=== PATIENT | female | born 1985 | race Caucasian/White ===

== ENCOUNTER → 2016-07-10 | Outpatient (CLI) | payer OTHER ==
[~2016-07-10] MED LIST: ESCI10TA17 PO; IBUP600T44 PO; LEVOIUD PV; LXP/10 PO; NORG0.253 PO; NORGTAB36 PO; NORGTAB39 PO; OXYC-57 PO; TOPI100T20 PO; TOPI50TA16 PO; TOPI50TA24 PO; VENL150C56 PO
== END | disposition home or self-care (01) ==
LOC: C.PAPS 09:48
PROVIDERS: ATTEND Obstetrics & Gynecology
DX: Z01.419 Encounter for gynecological examination (general) (routine) without abnormal findings (principal)

== ENCOUNTER → 2016-08-06 | Outpatient (CLI) | payer OTHER ==
[2016-08-09 00:50] LABS: CHLAMYDIA TRACH RNA*** NOT DETECTED (NOT DETECTED); GC (NEIS GONORRHOEAE)RNA** NOT DETECTED (NOT DETECTED)
== END | disposition home or self-care (01) ==
LOC: C.LABSPEC 16:24
PROVIDERS: ATTEND Obstetrics & Gynecology
DX: Z30.430 Encounter for insertion of intrauterine contraceptive device (principal)

== ENCOUNTER 2016-08-28 08:48 | Emergency (ER) | payer OTHER ==
[~2016-08-28] VITALS: Ht 165.1 cm; Wt 97.8 kg
[~2016-08-28 08:48] MED LIST changes: -ESCI10TA17 PO; -IBUP600T44 PO; -LEVOIUD PV; -LXP/10 PO; -NORG0.253 PO; -NORGTAB36 PO; -OXYC-57 PO; -TOPI100T20 PO; -TOPI50TA16 PO; -TOPI50TA24 PO
[2016-08-28 08:50] VITALS: TEMP 36.5; Ht 165.1 cm; Wt 97.8 kg
[2016-08-28] MEDS ORDERED: SODIUM CHLORIDE 0.9% 1000ML 1,000 ML IV STA (09:33)
--- NOTE | 2016-08-28 09:42 | EMERGENCY ROOM VISIT NOTE ---
History First contact with patient: :02 Chief Complaint: PELVIC PAIN Stated Complaint: RIGHT PELVIC PAIN-RADIATES UP TO ABD. AND BACK History of Present Illness The patient is a 30 year old female who presents to the Emergency Room with complaints of abdominal pain increasing. The patient had an IUD placed approximately 2 weeks ago. She developed cramping afterwards and when the position was checked and its position was incorrect. That IUD was removed and another was placed 2 days ago. The patient has had pain and cramping. She reports constant cramping pain and occasional sharp pain in the right lower abdomen that radiates to the back. The patient states that she works at the [employer]. She had an ultrasound done yesterday was found to have approximately 12 mL of free fluid around the left ovary. She was also found to have a cyst on the left ovary that has been stable. The pain she is experiencing is all on the right side. She has had an appendectomy in the past. The patient rates her discomfort a 3.5/10. She reports nausea. She has been taking ibuprofen without significant improvement. She denies any fevers or chills. She denies any pain in her chest or trouble breathing. She denies any urinary symptoms. She denies any vaginal discharge. Review of Systems A 10 system review of systems was completed with positives and pertinent negatives listed in the HPI. Past Medical/Surgical History Medical Problems: (1) Anxiety (2) Bipolar disorder Social History Smoking Status: Former Smoker Alcohol Use: none Drug Use: none Housing Status: lives alone, lives with family Occupation Status: employed Current/Historical Medications Scheduled Escitalopram (Lexapro), 10 MG PO HS Levonorgestrel (Iud) (Mirena), 1 EA PV UD Topiramate (Topamax), 100 MG PO HS Topiramate (Topamax), 50 MG PO QAM Scheduled PRN Ibuprofen (Motrin), 600 MG PO Q6H PRN for Pain Oxycodone/Acetaminophen 5MG/325MG (Percocet 5MG/325MG), 1-2 TABS PO Q4 PRN for Pain Allergies Uncoded Allergies: DIAMATAP (Allergy, Unknown, UNKNOWN, 07/06/14) Physical Exam Vital Signs Date Time Temp Pulse Resp B/P Pulse Ox O2 Delivery O2 Flow Rate FiO2 08/28/16 12:09 68 16 117/79 97 Room Air 08/28/16 11:06 73 16 147/95 100 Room Air 08/28/16 08:50 36.5 75 17 136/80 99 Room Air Physical Exam VITALS: Vitals are noted on the nurse's note and reviewed by myself. Vital signs stable. The patient is afebrile. GENERAL: This is a 30-year-old female, in no acute distress, nondiaphoretic, well-developed well-nourished. SKIN: The skin was without rashes, erythema, edema, or bruising. There is no tenting of the skin. Capillary reflex less than 2 seconds. HEAD: Normocephalic atraumatic. EARS: The external ears are normal in appearance. EYES: Pupils equal round and reactive to light and accommodation. Conjunctivae without injection, sclerae without icterus. Extraocular movements intact. NOSE: Patent, turbinates without inflammation or discharge. No sinus tenderness. MOUTH: Mucous membranes moist. Tonsils are not enlarged. Pharynx without erythema or exudate. Uvula midline. Airway patent. Tongue does not deviate. NECK: Supple without nuchal rigidity. No JVD. HEART: Regular rate and rhythm without murmurs gallops or rubs. LUNGS: Clear to auscultation bilaterally without wheezes, rales or rhonchi. No retractions or accessory muscle use. ABDOMEN: Positive bowel sounds x 4. Soft, marked right lower quadrant tenderness. Positive rebound, rosving's, without masses or organomegaly. Miller sign negative. MUSCULOSKELETAL: No muscle atrophy, erythema, or edema noted. Full range of motion in all extremities. No tenderness to palpation. Normal gait. Strength 5/5 throughout. NEURO: Patient was alert and oriented to person place and time. No focal neurological deficits. Medical Decision & Procedures ER Provider Diagnostic Interpretation: ABDOMEN AND PELVIS CT WITH IV CONTRAST CT DOSE: 1089.73 mGycm HISTORY: Pain right abdominal pain, recent IUD placement h/o appendectomy TECHNIQUE: Multiaxial CT images of the abdomen and pelvis were performed following the use of intravenous contrast. COMPARISON STUDY: None. FINDINGS: Lung bases are clear. Liver spleen and pancreas appear unremarkable. Bowel pattern is nonobstructive. Kidneys negative for hydronephrosis. The appendix has been removed. Bowel pattern is considered nonobstructive. Intrauterine device within the central uterine canal. Moderate amount of high density fluid and/or blood within the pelvic cul-de-sac. This potentially represents a partial ovarian cyst rupture. IMPRESSION: 1. Moderate amount of blood and/or free fluid within the pelvic cul-de-sac. 2. This potentially relates to a partial cyst rupture. 3. Intrauterine device within the central uterine canal. 4. Study is otherwise negative. ULTRASOUND OF THE PELVIS CLINICAL HISTORY: Pelvic pain. COMPARISON STUDY: No priors. TECHNIQUE: Real-time, grayscale, and color flow sonography of the pelvis is performed both transabdominally and endovaginally. Images are reviewed in the transverse and longitudinal planes. FINDINGS: Uterus: The retroverted uterus is normal in size and echotexture, measuring 8.2 x 5.1 x 5.8 cm. Endometrium: An intrauterine device is in place. The endometrium is normal in appearance, and the endometrial stripe is normal in thickness measuring up to 0.5 cm. Ovaries: The ovaries are normal in size and morphology. The right ovary measures 2.2 x 0.9 x 1.8 cm and the left ovary measures 6.1 x 4.5 x 5.1 cm. There is a 5.1 cm minimally complex left ovarian cyst. Additional follicles are seen bilaterally. Normal Doppler waveforms are shown within both ovaries. Pelvis: There is a small volume of free fluid in the left adnexa. No concerning adnexal lesion is seen. IMPRESSION: 1. There is a 5.1 cm minimally complex left ovarian cyst. There is no sonographic evidence of ovarian torsion at the time of examination. 2. There is a small volume of free fluid in the left adnexa, likely related to cyst rupture. 3. The uterus and right ovary normal as imaged noting an intrauterine device in place. [~ rep ct add3]] ULTRASOUND OF THE PELVIS CLINICAL HISTORY: Pelvic pain. COMPARISON STUDY: No priors. TECHNIQUE: Real-time, grayscale, and color flow sonography of the pelvis is performed both transabdominally and endovaginally. Images are reviewed in the transverse and longitudinal planes. FINDINGS: Uterus: The retroverted uterus is normal in size and echotexture, measuring 8.2 x 5.1 x 5.8 cm. Endometrium: An intrauterine device is in place. The endometrium is normal in appearance, and the endometrial stripe is normal in thickness measuring up to 0.5 cm. Ovaries: The ovaries are normal in size and morphology. The right ovary measures 2.2 x 0.9 x 1.8 cm and the left ovary measures 6.1 x 4.5 x 5.1 cm. There is a 5.1 cm minimally complex left ovarian cyst. Additional follicles are seen bilaterally. Normal Doppler waveforms are shown within both ovaries. Pelvis: There is a small volume of free fluid in the left adnexa. No concerning adnexal lesion is seen. IMPRESSION: 1. There is a 5.1 cm minimally complex left ovarian cyst. There is no sonographic evidence of ovarian torsion at the time of examination. 2. There is a small volume of free fluid in the left adnexa, likely related to cyst rupture. 3. The uterus and right ovary normal as imaged noting an intrauterine device in place. Laboratory Results 08/28/16 09:50 Red Blood Count 4.67, Mean Corpuscular Volume 87.4, Mean Corpuscular Hemoglobin 28.7, Mean Corpuscular Hemoglobin Concent 32.8, Mean Platelet Volume 12.5, Neutrophils (%) (Auto) 62.9, Lymphocytes (%) (Auto) 30.0, Monocytes (%) (Auto) 5.6, Eosinophils (%) (Auto) 1.0, Basophils (%) (Auto) 0.3, Neutrophils # (Auto) 3.73, Lymphocytes # (Auto) 1.78, Monocytes # (Auto) 0.33, Eosinophils # (Auto) 0.06, Basophils # (Auto) 0.02 08/28/16 09:50 Test 08/28/16 00:00 08/28/16 09:50 Urine Color YELLOW Urine Appearance CLOUDY (CLEAR) Urine pH 5.0 (4.5-7.5) Urine Specific [place] 1.018 (1.000-1.030) Urine Protein NEG (NEG) Urine Glucose (UA) NEG (NEG) Urine Ketones NEG (NEG) Urine Occult Blood NEG (NEG) Urine Nitrite NEG (NEG) Urine Bilirubin NEG (NEG) Urine Urobilinogen NEG (NEG) Urine Leukocyte Esterase NEG (NEG) Urine WBC (Auto) 1-5 /hpf (0-5) Urine RBC (Auto) 5-10 /hpf (0-4) Urine Hyaline Casts (Auto) 1-5 /lpf (0-5) Urine Epithelial Cells (Auto) >30 /lpf (0-5) Urine Bacteria (Auto) NEG (NEG) White Blood Count 5.93 K/uL (4.8-10.8) Red Blood Count 4.67 M/uL (4.2-5.4) Hemoglobin 13.4 g/dL (12.0-16.0) Hematocrit 40.8 % (37-47) Mean Corpuscular Volume 87.4 fL (80-100) Mean Corpuscular Hemoglobin 28.7 pg (25-34) Mean Corpuscular Hemoglobin Concent 32.8 g/dl (32-36) Platelet Count 191 K/uL (130-400) Mean Platelet Volume 12.5 fL (7.4-10.4) Neutrophils (%) (Auto) 62.9 % Lymphocytes (%) (Auto) 30.0 % Monocytes (%) (Auto) 5.6 % Eosinophils (%) (Auto) 1.0 % Basophils (%) (Auto) 0.3 % Neutrophils # (Auto) 3.73 K/uL (1.4-6.5) Lymphocytes # (Auto) 1.78 K/uL (1.2-3.4) Monocytes # (Auto) 0.33 K/uL (0.11-0.59) Eosinophils # (Auto) 0.06 K/uL (0-0.5) Basophils # (Auto) 0.02 K/uL (0-0.2) RDW Standard Deviation 43.6 fL (36.4-46.3) RDW Coefficient of Variation 13.6 % (11.5-14.5) Immature Granulocyte % (Auto) 0.2 % Immature Granulocyte # (Auto) 0.01 K/uL (0.00-0.02) Prothrombin Time 9.5 SECONDS (9.0-12.0) Prothromb Time International Ratio 0.9 (0.9-1.1) Activated Partial Thromboplast Time 25.8 SECONDS (21.0-31.0) Partial Thromboplastin Ratio 1.0 Anion Gap 8.0 mmol/L (3-11) Est Creatinine Clear Calc Drug Dose 141.3 ml/min Estimated GFR () 137.0 Estimated GFR (Non- 118.2 BUN/Creatinine Ratio 10.5 (10-20) Calcium Level 8.7 mg/dl (8.5-10.1) Total Bilirubin 0.4 mg/dl (0.2-1) Aspartate Amino Transf (AST/SGOT) 12 U/L (15-37) Alanine Aminotransferase (ALT/SGPT) 12 U/L (12-78) Alkaline Phosphatase 67 U/L (45-117) Total Protein 7.0 gm/dl (6.4-8.2) Albumin 3.2 gm/dl (3.4-5.0) Globulin 3.8 gm/dl (2.5-4.0) Albumin/Globulin Ratio 0.8 (0.9-2) Lipase 111 U/L (73-393) Human Chorionic Gonadotropin, Qual NEG (NEG) Medications Administered Medications (Trade) Dose Ordered Sig/Gwendolyn Route Start Time Stop Time Status Last Admin Dose Admin Sodium Chloride (Nss 1000ml) 1,000 ml @ 999 mls/hr Q1H1M STAT IV 08/28/16 09:33 08/28/16 10:33 DC 08/28/16 10:01 999 MLS/HR ED Course The patient was seen and examined. Previous visits were reviewed. The patient does not have a fever or leukocytosis. She is not anemic. She does not have any significant electrolyte abnormality. Serum test was negative. Lipase was not elevated. INR was 0.9. Urinalysis reveals mild hematuria. Imaging was obtained as above. The patient appears to have a 5.1 cm complex left-sided ovarian cyst with a small amount of free fluid which suggests cyst rupture. The IUD appears to be in place. The patient presents to the emergency department with right lower abdominal discomfort. She had a recent IUD placement. The patient also is known to have a left-sided ovarian cysts with a small amount of free pelvic fluid. Imaging suggests a cyst rupture. The patient is hemodynamically stable. I discussed the case with Dr. Christiansen who evaluated the patient in the emergency department. He recommends rest, off work until Thursday and pain medication. The patient was advised of this. She should return to the ER immediately with any worsening symptoms, chest pain, trouble breathing, worsening pain. The case was discussed with Dr. Platt who agrees with the assessment and treatment plan Medical Decision DIFFERENTIAL DIAGNOSIS: Hepatitis, cholecystitis, cholangitis, biliary colic, pancreatitis, pneumonia, subdiaphragmatic abscess, appendicitis, inguinal hernia , nephrolithiasis, inflammatory bowel disease, mesenteric adenitis, peptic ulcer disease, GERD, gastritis, pancreatitis, myocardial infarction, pericarditis, ruptured aortic aneurysm, appendicitis, gastroenteritis, bowel obstruction, splenic infarct, diverticulitis, mesenteric ischemia, metabolic, peritonitis, Pelvic inflammatory disease, ovarian cyst, ovarian torsion, ovarian rupture, , ectopic , endometriosis, endometritis, urinary tract infection, ruptured ovarian cyst, tubo-ovarian abscess, among others. [place] Drug Monitoring Program Search Results: patient reviewed within database, no issues identified Impression Primary Impression: Ruptured ovarian cyst Additional Impression: Right lower quadrant abdominal pain Departure Information Dispostion Home / Self-Care Condition GOOD Prescriptions Oxycodone/Acetaminophen 5MG/325MG (PERCOCET 5MG/325MG) Tab 1-2 TABS PO Q4 Y for Pain, #36 TAB For Initial Treatment Prov: Opal Whitt PA-C 08/28/16 Referrals No Doctor, Assigned (PCP) Arsalan Christiansen M.D. Forms HOME CARE DOCUMENTATION FORM, IMPORTANT VISIT INFORMATION, WORK / SCHOOL INSTRUCTIONS Patient Instructions Cyst Ruptured Ovarian Tx, My [facility] Additional Instructions Percocet 1-2 tablet every 4-6 hours as needed for worse pain. No driving or alcohol use with Percocet and do not take with Tylenol. Return with any chest pain, trouble breathing, dizziness, lightheadedness or generalized worsening symptoms Otherwise, follow up with [facility] next week Work Instructions Additional Work Instructions: Off work until September 01 Problem Qualifiers
[2016-08-28] MEDS ORDERED: OPTIRAY 320 IV PRN (09:45)
[2016-08-28 10:07] LABS: URINE APPEARANCE CLOUDY (CLEAR); URINE BILIRUBIN NEG (NEG); URINE COLOR YELLOW; URINE EPITHELIAL CELL AUTO >30 /lpf (0-5); URINE NITRITE NEG (NEG); URINE SPECIFIC GRAVITY 1.018 (1.000-1.030); UROBILINOGEN NEG (NEG); ZZUR CULT IF INDIC CLEAN CATCH NO
[2016-08-28 10:08] LABS: BASO % 0.3 %; BASO ABS # 0.02 K/uL (0-0.2); COMPLETE YES; HEMATOCRIT 40.8 % (37-47); IG% 0.2 %; LYMPH ABS # 1.78 K/uL (1.2-3.4); MEAN CELL VOLUME 87.4 fL (80-100); MEAN CORPUSCULAR HEMOGLOBIN 28.7 pg (25-34); MEAN CORPUSCULAR HGB CONC 32.8 g/dl (32-36); MEAN PLATELET VOLUME 12.5 fL (7.4-10.4); MONO % 5.6 %; NEUT % 62.9 %; PLATELET COUNT 191 K/uL (130-400); RED BLOOD COUNT 4.67 M/uL (4.2-5.4); WHITE BLOOD COUNT 5.93 K/uL (4.8-10.8)
[2016-08-28 10:10] LABS: MANUAL MICROSCOPIC REQUIRED? NO; REVIEW REQ? NO
[2016-08-28 10:16] LABS: INR 0.9 (0.9-1.1); PROTHROMBIN TIME (PATIENT) 9.5 SECONDS (9.0-12.0)
[2016-08-28 10:29] LABS: BUN/CREATININE RATIO 10.5 (10-20); CALCIUM 8.7 mg/dl (8.5-10.1); CREATININE 0.68 mg/dl (0.60-1.20); POTASSIUM 3.9 mmol/L (3.5-5.1)
[2016-08-28 10:31] LABS: ALB/GLOB RATIO 0.8 (0.9-2)
[2016-08-28 10:44] LABS: PREG INTERNAL NEGATIVE QC NEG CLEAR BACKGROUND; PREG INTERNAL POSITIVE QC POS CONTROL LINE
--- NOTE | 2016-08-28 11:09 | DIAGNOSTIC IMAGING REPORT ---
ULTRASOUND OF THE PELVIS CLINICAL HISTORY: Pelvic pain. COMPARISON STUDY: No priors. TECHNIQUE: Real-time, grayscale, and color flow sonography of the pelvis is performed both transabdominally and endovaginally. Images are reviewed in the transverse and longitudinal planes. FINDINGS: Uterus: The retroverted uterus is normal in size and echotexture, measuring 8.2 x 5.1 x 5.8 cm. Endometrium: An intrauterine device is in place. The endometrium is normal in appearance, and the endometrial stripe is normal in thickness measuring up to 0.5 cm. Ovaries: The ovaries are normal in size and morphology. The right ovary measures 2.2 x 0.9 x 1.8 cm and the left ovary measures 6.1 x 4.5 x 5.1 cm. There is a 5.1 cm minimally complex left ovarian cyst. Additional follicles are seen bilaterally. Normal Doppler waveforms are shown within both ovaries. Pelvis: There is a small volume of free fluid in the left adnexa. No concerning adnexal lesion is seen. IMPRESSION: 1. There is a 5.1 cm minimally complex left ovarian cyst. There is no sonographic evidence of ovarian torsion at the time of examination. 2. There is a small volume of free fluid in the left adnexa, likely related to cyst rupture. 3. The uterus and right ovary normal as imaged noting an intrauterine device in place. Electronically signed by: Eugene Donovan M.D. 08/28/2016 11:07 AM Dictated Date/Time: 08/28/2016 11:04 AM
--- NOTE | 2016-08-28 11:14 | DIAGNOSTIC IMAGING REPORT ---
ABDOMEN AND PELVIS CT WITH IV CONTRAST CT DOSE: 1089.73 mGycm HISTORY: Pain right abdominal pain, recent IUD placement h/o appendectomy TECHNIQUE: Multiaxial CT images of the abdomen and pelvis were performed following the use of intravenous contrast. COMPARISON STUDY: None. FINDINGS: Lung bases are clear. Liver spleen and pancreas appear unremarkable. Bowel pattern is nonobstructive. Kidneys negative for hydronephrosis. The appendix has been removed. Bowel pattern is considered nonobstructive. Intrauterine device within the central uterine canal. Moderate amount of high density fluid and/or blood within the pelvic cul-de-sac. This potentially represents a partial ovarian cyst rupture. IMPRESSION: 1. Moderate amount of blood and/or free fluid within the pelvic cul-de-sac. 2. This potentially relates to a partial cyst rupture. 3. Intrauterine device within the central uterine canal. 4. Study is otherwise negative. Electronically signed by: Roberto Nye M.D. 08/28/2016 11:12 AM Dictated Date/Time: 08/28/2016 11:04 AM
[2016-08-28] MEDS ORDERED: OXYC-57 PO (12:00)
[2016-08-28 12:09] VITALS: BP 117/79; PULSE 68; O2SAT 97
--- NOTE | 2016-08-29 07:06 | GYNECOLOGICAL CONSULTATION ---
DATE OF CONSULTATION: 08/28/2016 REQUESTING PROVIDER: Opal Whitt PA-C. INDICATION: Right lower quadrant pain. HISTORY OF PRESENT ILLNESS: The patient is a 30-year-old 2, para 2, who presented to the Emergency Room for evaluation of right lower quadrant pain. The patient had had a Mirena IUD inserted in the office on 26 August. This was a second IUD for the patient. The patient had been amenorrheic on the first IUD. The patient 24 hours later began to develop some lower abdominal pain radiating into the right lower quadrant. She had a pelvic ultrasound in the office, which showed some free fluid in the cul-de-sac and a 5 cm left ovarian cyst. IUD was visualized and appeared to be in proper position. The patient's discomfort continued and she presented to the Emergency Room for evaluation. The patient's 2 pregnancies were sections. She states that she has a history of endometriosis. PHYSICAL EXAMINATION: GENERAL: Shows a female, somewhat uncomfortable, but in no acute distress. VITAL SIGNS: Blood pressure is 136/80. ABDOMEN: Tender to palpation in the right lower quadrant with rebound. No guarding. Positive bowel sounds. EXTREMITIES: Showed no deep calf tenderness. LABORATORY VALUES: Showed an H\T\H of 13.4 and 40.8. Metabolic profile is within normal limits. RADIOGRAPHICAL EVALUATION: Pelvic ultrasound shows a small amount of fluid in the cul-de-sac. IUD visualized, left adnexal process. Pelvic CT, complex cyst of the left ovary with complex fluid in the posterior cul-de-sac consistent with blood. IMPRESSION: A 30-year-old G2, P2 with probable ruptured right ovarian cyst. PLAN: The patient is hemodynamically stable. Her blood count is stable. Her vitals are stable. In all likelihood, there is some irritation from the blood in the cul-de-sac from the ruptured left ovarian cyst. Treatment options were discussed with the patient including conservative management with pain medications and observation versus definitive surgical management with diagnostic laparoscopy, ovarian cystectomy and aspiration of fluid. Because the patient is hemodynamically stable, I do not believe that there is an emergent need for surgery at this time. The patient wishes to have conservative management. She will be discharged home on pain medications and will rest for the next 4 days. If there is no improvement by the 01 of September, she will contact the office for repeat evaluation.
[2016-08-31] MEDS ORDERED: LEVOIUD PV (09:06)
[2016-08-31] MEDS ORDERED: TOPI100T20 PO (09:06)
[2016-08-31] MEDS ORDERED: IBUP600T44 PO (09:06)
[2016-08-31] MEDS ORDERED: TOPI50TA24 PO (09:06)
[2016-08-31] MEDS ORDERED: ESCI10TA17 PO (09:06)
[2016-10-15] MEDS ORDERED: NORG0.253 PO (12:19)
[2016-11-10] MEDS ORDERED: OXYC-57 PO (11:43)
== END 2016-08-28 12:16 | disposition home or self-care (01) ==
LOC: C.EDB 08:49 → C.EDA 12:16
DX: N83.202 Unspecified ovarian cyst, left side (principal); R10.31 Right lower quadrant pain; R11.0 Nausea; F41.9 Anxiety disorder, unspecified; F31.9 Bipolar disorder, unspecified; Z79.899 Other long term (current) drug therapy; Z87.891 Personal history of nicotine dependence; Z97.5 Presence of (intrauterine) contraceptive device

== ENCOUNTER 2016-08-31 15:11 | Emergency (ER) | payer OTHER ==
[~2016-08-31] VITALS: Ht 165.1 cm; Wt 98.3 kg
[~2016-08-31 15:11] MED LIST changes: +ESCI10TA17 PO; +IBUP600T44 PO; +LEVOIUD PV; -NORGTAB39 PO; +OXYC-57 PO; +TOPI100T20 PO; +TOPI50TA24 PO; -VENL150C56 PO
[2016-08-31 15:15] VITALS: Ht 165.1 cm; Wt 98.3 kg
[2016-08-31] MEDS ORDERED: HYDROmorphone INJ 0.5 MG/0.5 ML SYR IV STA (15:47)
[2016-08-31] MEDS ORDERED: ONDANSETRON INJ 2 MG/ML 2 ML VIAL IV STA (15:47)
[2016-08-31] MEDS ORDERED: SODIUM CHLORIDE 0.9% 1000ML 1,000 ML IV STA ×2 (15:47)
[2016-08-31 16:27] LABS: BASO % 0.4 %; BASO ABS # 0.03 K/uL (0-0.2); COMPLETE YES; EOS % 1.6 %; HEMATOCRIT 39.1 % (37-47); IG% 0.1 %; LYMPH % 38.1 %; LYMPH ABS # 2.66 K/uL (1.2-3.4); MEAN CELL VOLUME 87.5 fL (80-100); MEAN CORPUSCULAR HEMOGLOBIN 28.9 pg (25-34); MEAN PLATELET VOLUME 12.6 fL (7.4-10.4); MONO % 6.4 %; NEUT % 53.4 %; PLATELET COUNT 204 K/uL (130-400); RED BLOOD COUNT 4.47 M/uL (4.2-5.4); WHITE BLOOD COUNT 6.99 K/uL (4.8-10.8)
[2016-08-31 16:36] LABS: INR 0.9 (0.9-1.1); PROTHROMBIN TIME (PATIENT) 9.9 SECONDS (9.0-12.0)
[2016-08-31 16:44] LABS: BUN/CREATININE RATIO 13.8 (10-20); CALCIUM 9.2 mg/dl (8.5-10.1); CREATININE 0.78 mg/dl (0.60-1.20); POTASSIUM 4.1 mmol/L (3.5-5.1)
[2016-08-31 16:47] LABS: ALB/GLOB RATIO 0.8 (0.9-2)
[2016-08-31 16:54] LABS: PREG INTERNAL NEGATIVE QC NEG CLEAR BACKGROUND; PREG INTERNAL POSITIVE QC POS CONTROL LINE
--- NOTE | 2016-08-31 17:17 | DIAGNOSTIC IMAGING REPORT ---
ULTRASOUND OF THE PELVIS CLINICAL HISTORY: Pelvic pain. Ruptured ovarian cyst. COMPARISON STUDY: Pelvic CT dated 08/28/2016. Pelvic ultrasound dated 08/28/2016. TECHNIQUE: Real-time, grayscale, and color flow sonography of the pelvis is performed both transabdominally and endovaginally. Images are reviewed in the transverse and longitudinal planes. FINDINGS: Uterus: The uterus is normal in size and echotexture, measuring 8.6 x 4.1 x 5.1 cm. Endometrium: An intrauterine device is in place. The endometrium is normal in appearance, and the endometrial stripe is normal in thickness measuring up to 0.8 cm. Ovaries: The ovaries are normal in size and morphology. The right ovary measures 2.2 x 1.8 x 1.5 cm and the left ovary measures 5.7 x 3.4 x 5.3 cm. A simple appearing left ovarian cyst measures up to 5.0 cm. Normal Doppler waveforms are shown within both ovaries. Pelvis: There is trace free fluid in the cul-de-sac. No concerning adnexal lesion is seen. IMPRESSION: 1. There is a 5.0 cm simple appearing cyst again seen in the left ovary. There is no sonographic evidence of ovarian torsion at the time of examination. 2. The uterus and right ovary normal in appearance noting an intrauterine device in place. 3. There is trace free fluid in the cul-de-sac. The volume of free fluid has decreased from 08/28/2016. Electronically signed by: Eugene Donovan M.D. 08/31/2016 5:16 PM Dictated Date/Time: 08/31/2016 5:13 PM
[2016-08-31] MEDS ORDERED: HYDROmorphone INJ 1 MG/ML SYR IV STA (17:24)
[2016-08-31] MEDS ORDERED: CEFAZOLIN IV 2,000 MG in DEXTROSE 5% 50ML 50 ML IV SCH (19:00)
[2016-08-31 19:01] VITALS: O2SAT 98
[2016-08-31] MEDS ORDERED: FENTANYL CITRATE INJ 50 MCG/1 ML 2 ML VIAL ONE ×2 (19:35→20:48)
[2016-08-31] MEDS ORDERED: MIDAZOLAM HCL 1 MG/ML 2ML VIAL ONE (19:35)
--- NOTE | 2016-08-31 19:43 | GYNECOLOGICAL CONSULTATION ---
DATE OF CONSULTATION: 08/31/2016 REASON FOR CONSULTATION: Pelvic pain. HISTORY OF PRESENT ILLNESS: This is a 30-year-old female known to my care. She presents today with right worse than left lower quadrant pelvic pain which is not responding to Percocet that the patient had been given to use at home. Her recent care is notable for insertion of a Mirena IUD in the office by myself on August 26. The patient had previously had another Mirena IUD, which was positioned low in uterus and was removed. She very much wanted to give an IUD another try and therefore the current one was placed without complication on August 26. Some hours after placement of this second IUD, the patient began to develop lower abdominal pain primarily in the right lower quadrant. Pelvic ultrasound was done which showed free fluid in the cul-de-sac, a 5 cm left ovarian cyst, and an IUD in the proper position. The patient was advised on comfort measures to use that evening; however, her discomfort continued and she presented to the ER for evaluation on August 28. She was evaluated at that point by Dr. Christiansen. Her H\T\H was normal with a hemoglobin of 13.4. Pelvic ultrasound was repeated and again showed a small amount of fluid in the cul-de-sac, an IUD in normal position and a simple left ovarian cyst. A pelvic CT was done additionally and that noted complex fluid in the posterior cul-de-sac which suggested that the fluid being seen on ultrasound was blood. The impression at that time was a 30-year-old with probable ruptured right ovarian cyst. Given that the patient was hemodynamically stable she and her physician agreed at that time on conservative management and she was discharged to home with pain medication. She returns to the Emergency Department today August 31, three days later, noting that her pain has worsened and the Percocet does not control her pain. Here in the ER today she has a white count of 6.99, hemoglobin of 12.9, platelets of 204 and negative test, normal CMP and normal coag studies. Imaging was repeated which shows an ongoing 5 cm simple appearing cyst in the left ovary, a normal right ovary, Doppler waveforms in both ovaries, trace free fluid in the cul-de-sac which is decreased from previous imaging and an IUD in normal position inside of a normal uterus. PMHx, PSHx, SocHx, FamHx, Alls, Meds are all reviewed and unchanged from visit on 08/28/16. PHYSICAL EXAMINATION: VITAL SIGNS: Temperature 36.7, pulse of 86 and 67, respiratory rate 18, blood pressure 121/88 and 118/90, pulse ox 95-97 on room air. GENERAL: On exam the patient is in moderate distress with wincing and inability to stay in one position in the bed, spending most of her time in the right lateral decubitus position. HEART: She has a regular rate and rhythm. No rubs, murmurs or gallops. LUNGS: Her lungs are clear to auscultation bilaterally. ABDOMEN: Her abdomen is mildly obese and diffusely tender to palpation with some rebound noted in the lower quadrants. However, there is no guarding. PELVIC: Exam was done, which reveals mild cervical motion tenderness but no discharge or purulence, no foul odor is noted. IUD strings are present and on bimanual the patient is exquisitely tender with palpation of either adnexa. After discussion with the patient, the decision was made to remove the IUD at this time in order to rule that out as the ongoing cause of her discomfort because although it appears normal on all imaging the pain began shortly after placement of this IUD. The IUD strings are grasped with a ring forceps and with gentle traction the IUD was removed intact and discarded. The patient stated that her pain worsened slightly with removal of the IUD and then returned to its pre-removal level with no improvement whatsoever. ASSESSMENT AND PLAN: A 30-year-old with significant pelvic pain nonresponsive to oral pain medications in the outpatient setting and unrelieved by removal of the recently placed IUD. The differential at this time includes left ovarian cyst pain with or without intermittent ovarian torsion, prior ruptured cyst that is resolving / a small amount of fluid in the pelvis that may be irritating the patient, endometriosis with which she was previously diagnosed and which may be more active in the setting of IUD use than it was with her previous NuvaRing use, ongoing pain from IUD placement and removal, and pain due to pelvic adhesive disease and scar tissue. Presently pelvic infection is thought to be unlikely given her normal white count and lack of vaginal discharge or odor, though cannot necessarily be ruled out. She is additionally very low risk for STDs. The patient has a negative test making ectopic exceedingly unlikely. PLAN: After discussing options with the patient, she is very frustrated and wishes to pursue surgical treatment at this time. She feels that if she were sent home with pain medication again, she would be unable to tolerate her current level of pain and would return to ER. She would like to know why she is hurting so much. We have discussed doing a diagnostic laparoscopy with possible drainage or removal of the left ovarian cyst, possible removal of the left tube and ovary, possible lysis of adhesions and possible fulguration of endometriosis if encountered. The patient has been brought to understand that her risks may be higher than average due to a history of 2 sections and a prior laparoscopy for endometriosis as well as prior appendectomy. Her risks are pain, infection, bleeding, injury to internal organs, conversion to open procedure, impact on future fertility and/or timing of menopause. She understands that her risks may be higher than average. She has also been offered the alternative of medical management and continued observation with pain medication use, which may succeed if given more time, particularly as we would now place her back on oral contraceptives since the IUD has been removed. This may help her resolve any pain from the left ovarian cyst and/or endometriosis. However, the patient feels unable to await that relief. The patient is currently n.p.o. I will consult anesthesia and we will plan for laparoscopy as discussed above. Additionally, now that the IUD has been removed, I have discussed with the patient starting her on oral contraceptives beginning today. She has previously refused use of oral contraceptives as a care home solution as she has difficulty remembering to take them. She is, however, amenable to use in the immediate timeframe to replace the IUD's contraceptive benefit, to suppress endometriosis while we make a care home plan, and she feels she can commit to perfect use for the next three months. She continues to feel that despite her young age she has completed childbearing with the 2 children she currently has. She feels that oral contraceptives and NuvaRing, while they treat her endometriosis, are not acceptable long-term options for her because she feels that they cause unacceptable mood effects and are difficult for her to remember to take consistently. She feels that Depo is not a good solution for her as she has tried this in the past and had chronic bleeding which she found bothersome. She feels that IUDs at this point have demonstrated themselves not to be a good choice for her and would be unwilling to try another. Once we have addressed the acute issue today, she is interested in considering tubal sterilization as her care home contraception. She is also requesting that we discuss hysterectomy due to her known history of endometriosis. She understands that at present the goal is to diagnose and treat her current pain and that I do not feel that deciding for sterilization or hysterectomy under acute and stressful circumstances such as these is in her best interest. She is in agreement with proceeding with diagnostic laparoscopy and possible procedures as previously discussed. JEREMIAH
[2016-08-31] MEDS ORDERED: ONDANSETRON INJ 2 MG/ML 2 ML VIAL IV PRN ×2 (20:00→22:15)
[2016-08-31] MEDS ORDERED: PROMETHAZINE HCL INJ 12.5 MG in SODIUM CHLORIDE 0.9% 50ML 50 ML IV PRN (20:00)
[2016-08-31] MEDS ORDERED: ATROPINE SULFATE 0.1 MG/ML 5ML SYR IV PRN (20:00)
[2016-08-31] MEDS ORDERED: KETOROLAC TROMETHAMINE 30 MG/ML VIAL IV. PRN ×2 (20:00→22:15)
[2016-08-31] MEDS ORDERED: METOCLOPRAMIDE HCL INJ 5 MG/ML 2 ML VIAL ONE (20:41)
[2016-08-31] MEDS ORDERED: ROCURONIUM BROMID 50MG/5ML SYR ONE (20:41)
[2016-08-31] MEDS ORDERED: ONDANSETRON INJ 2 MG/ML 2 ML VIAL ONE ×2 (20:41→21:32)
[2016-08-31] MEDS ORDERED: LIDOCAINE HCL 2% 2 ML VIAL (20MG/ML) ONE (20:41)
[2016-08-31] MEDS ORDERED: PROPOFOL IV EMULSION 10 MG/ML 20 ML VIAL IV ONE (20:41)
[2016-08-31] MEDS ORDERED: HYDROmorphone INJ 2 MG/ML SYR/VIAL ONE (21:39)
[2016-08-31] MEDS ORDERED: KETOROLAC TROMETHAMINE 30 MG/ML VIAL ONE (21:39)
[2016-08-31] MEDS: HYDROmorphone INJ 2 MG/ML SYR/VIAL IV PRN ×2 (21:40→21:45)
--- NOTE | 2016-08-31 21:59 | Anesthesiology Progress Note ---
Anesthesia Post Op Note Date & Time Aug 31, 2016 at 21:59 Vital Signs Vital Signs Past 12 Hours Date Time Temp Pulse Resp B/P Pulse Ox O2 Delivery O2 Flow Rate FiO2 08/31/16 21:56 110/78 08/31/16 21:52 75 15 99 08/31/16 21:52 73 15 08/31/16 21:50 118/65 08/31/16 21:47 68 18 100 08/31/16 21:47 68 18 08/31/16 21:45 120/67 08/31/16 21:42 70 19 100 08/31/16 21:42 70 19 08/31/16 21:41 69 18 08/31/16 21:41 68 18 100 08/31/16 21:40 121/78 08/31/16 21:36 70 16 98 08/31/16 21:36 70 16 08/31/16 21:35 112/67 08/31/16 21:31 72 26 98 08/31/16 21:31 69 26 08/31/16 21:30 107/62 08/31/16 21:29 113/72 08/31/16 21:26 78 16 92 08/31/16 21:26 79 16 08/31/16 21:22 127/72 08/31/16 21:21 35.7 85 20 127/72 98 Mask 10 08/31/16 21:21 82 14 96 08/31/16 21:21 82 14 08/31/16 19:01 69 16 137/87 98 Room Air 08/31/16 17:01 67 118/90 95 08/31/16 15:15 36.7 86 18 121/88 97 Room Air Notes Mental Status: alert / awake / arousable, participated in evaluation Pt Amnestic to Procedure: Yes Nausea / Vomiting: adequately controlled Pain: adequately controlled Airway Patency, RR, SpO2: stable & adequate BP & HR: stable & adequate Hydration State: stable & adequate Anesthetic Complications: no major complications apparent
[2016-08-31] MEDS ORDERED: SODIUM CHLORIDE 0.9% 1000ML 1,000 ML IV SCH (22:01)
--- NOTE | 2016-08-31 22:01 | [facility] Post Operative Brief Note ---
Immediate Operative Summary Operative Date Aug 31, 2016. Pre-Operative Diagnosis Pelvic pain. Left ovarian cyst. Post-Operative Diagnosis Pelvic pain. Left ovarian cyst. Endometriosis confirmed. Procedure(s) Performed Laparoscopic Left Salpingo-oophorectomy Surgeon Dr. Avina Judicial Assistant Surgeon(s) None Estimated Blood Loss 5 ml Findings Grossly enlarged L ovary with 5-6cm cyst, containing a grove/brown translucent fluid. Tubes, uterus and L ovary with obvious endometriotic implants, and thickened/scarred peritoneum as well as venous congestion throughout the pelvis. Normal shaped uterus and bilateral tubes. Normal R ovary. Surgically absent appendix. Normal RUQ/LUQ. Specimens A. Left ovary and fallopian tube Complication(s) None Disposition Surgical ICU (PACU at this hour of the night)
[2016-08-31] MEDS ORDERED: NORGTAB36 PO (22:05)
--- NOTE | 2016-08-31 22:08 | Discharge Instructions ---
Discharge Instructions Date of Service Aug 31, 2016. Visit Reason for Visit: Pelvic Pain Severe Rt Side,Seen Thurs And Worse Discharge Discharge Diagnosis / Problem: Left ovarian cyst, endometriosis Discharge Goals Goal(s): Specific goals Activity Recommendations Activity Limitations: per Instructions/Follow-up section Anesthesia . Post Anesthesia Instructions: If you have had General Anesthesia or IV Sedation: * Do not drive today. * Resume driving when surgeon permits. * Do not make important decisions or sign legal documents today. * Call surgeon for: 1. Temperature elevations greater than 101 degrees F. 2. Uncontrollable pain. 3. Excessive bleeding. 4. Persistent nausea and vomiting. 5. Medication intolerance (nausea, vomiting or rash). * For nausea and vomiting use only clear liquids such as: tea, soda, bouillon until nausea subsides, then gradually increase diet as tolerated. * If you have any concerns or questions, call your surgeon's office. If physician is unavailable and it is an emergency, call 911 or go to the nearest emergency room. . Instructions / Follow-Up Instructions / Follow-Up ACTIVITY RECOMMENDATIONS: * Rest the first 2-3 days. You should be back to your normal activity levels by day 3. It is OK to return to work at that point (Thursday) but do not lift anything over 25 pounds for the first two weeks after surgery. * No heavy lifting for 2 weeks. * No intercourse, tampons or douching for 1-2 weeks. * You may shower the next day. * Do not drive anytime that you are taking narcotic pain medicines. * Begin taking Ortho Tri-Cyclen, the control pill, immediately. Use a backup method of contraception for the first 7 days. RETURN TO SCHOOL/WORK: * May return to school or work after 2-3 days. DIET: Nausea may occur in the immediate post-operative period. If so, take clear liquids such as tea, bouillon, apple juice until all nausea has subsided, then resume usual diet. MEDICATIONS: Resume previous medications unless instructed otherwise by your surgeon. Ibuprofen 200mg 2-3 tablets every 4-6 hours as needed -- OR -- Aleve 2 tablets every 8-12 hours as needed for post-operative discomfort Medications are over the counter. Tylenol may be used if above medications are contraindicated or not preferred. Medication should be taken with food or milk. Do not take on an empty stomach. SPECIAL CARE INSTRUCTIONS: * Check temperature twice daily for one week. report any elevation over 101 degrees. * You may experience some vagina spotting and/or bleeding. This is normal for 1 -2 weeks and should not be heavier than a normal period. If it is unusual in amount, call your physician. * Post-operative discomfort may consist of a sore throat, a "bloated" feeling and pain in the shoulders. these are normal symptoms, which usually only last for 2-3 days. * Remove band-aids tomorrow and shower. There is no need to replace band-aids unless there is drainage or discomfort. FOLLOW UP VISIT: Call your doctor's office for a post-operative 2 week visit if not already scheduled. Diet Recommendations Recommended Home Diet: resume previous diet Procedures Procedures Performed: Laparoscopic Left Salpingo-oophorectomy Pending Studies Studies pending at discharge: no Medical Emergencies . Who to Call and When: Medical Emergencies: If at any time you feel your situation is an emergency, please call 911 immediately. . Non-Emergent Contact Non-Emergency issues call your: Primary Care Provider . . "Provider Documentation" section prepared by Amanda Avina.
[2016-08-31 22:10] VITALS: BP 101/65; PULSE 76; TEMP 36.5; O2SAT 99
[2016-08-31] MEDS ORDERED: OXYCODONE/ACETAMINOPHEN 5-325 TAB PO PRN ×2 (22:15)
[2016-08-31] MEDS ORDERED: MoRPHine SULFATE 2 MG/ML CARP IV PRN (22:15)
[2016-08-31] MEDS ORDERED: IBUPROFEN 600 MG TAB PO PRN (22:15)
[2016-08-31] MEDS ORDERED: MoRPHine SULFATE 4 MG/ML 1 ML CARP\\VIAL IV PRN (22:15)
[2016-08-31] MEDS ORDERED: PROMETHAZINE HCL INJ 25 MG in SODIUM CHLORIDE 0.9% 50ML 50 ML IV PRN (22:15)
[2016-08-31 23:16] VITALS: BP 137/82; PULSE 75; TEMP 36.8; O2SAT 98
--- NOTE | 2016-09-01 00:04 | OPERATIVE REPORT ---
DATE OF OPERATION: 08/31/2016 PREOPERATIVE DIAGNOSES: 1. Worsening pelvic pain. 2. A 5 cm left ovarian cyst. 3. Prior diagnosis of endometriosis. POSTOPERATIVE DIAGNOSES: Same, confirmed diagnosis of endometriosis. PROCEDURE: Diagnostic laparoscopy and laparoscopic left salpingo-oophorectomy. SURGEON: Dr. Avina. SECOND OPERATOR: None. ESTIMATED BLOOD LOSS: 5 mL FINDINGS: 1. Endometriosis, including gun powder lesions and thickened scarred endometrium found throughout the pelvis. Some of the more notable implants were on the left ovary, on the right tube near the fimbria and the distal end and throughout the cul-de-sac and uterosacral ligaments as well as on the anterior surface of the uterus. 2. Grossly enlarged left ovary with a cyst occurring essentially in the center of the ovarian stroma, leaving little or no recognizably normal ovary. 3. Normal right ovary. 4. Survey of the abdomen revealing surgically absent appendix and normal right and left upper quadrants, as expected. 5. Pemkwik-qy-fy free fluid. COMPLICATIONS: None. DISPOSITION: Stable to the ICU, which is serving as the PACU at this late hour of the evening. DESCRIPTION: Sandra Carrero is a 30-year-old G2, P2, who has been followed over the course of the past week for pelvic pain, occurring in the setting of her recent IUD placement, as well as a large left ovarian cyst. The patient presented to the Emergency Department on August 31, which was her second presentation in 3 days. She was complaining of [id number] left pelvic pain, which was no longer adequately managed by the Percocet she had previously been provided. Ultrasound showed continued presence of a large left ovarian cyst, normal right ovary, near resolution of the previously seen pelvic free fluid and an IUD remaining in normal position. Because the patient's pain began at the time of IUD placement, although the IUD has appeared normal on all imaging, she was offered IUD removal to see if that would ameliorate her symptoms. The IUD was removed; however, the pain persisted, if not worsened. At this time, although my suspicion for ovarian torsion versus ovarian cyst rupture was relatively low, given her normal imaging, the patient's clinical presentation could not be ignored and she did not feel that she was able to go home with pain medication for further observation. She, therefore, was brought to the operating room for a diagnostic laparoscopy. The patient had further been consented for possible cystectomy, possible unilateral salpingo-oophorectomy, lysis of adhesions and treatment of endometriosis. She had voiced to me preoperatively that she has completed her childbearing. She is frustrated with the management of her endometriosis, which has been largely unsuccessful and that she both expected and wished to undergo definitive surgery, specifically hysterectomy, which had been the course taken by many of her female family members as well. I discussed that I did not think that in this acute setting, it was the ideal time for us to perform either a permanent sterilization or a full total laparoscopic hysterectomy; however, we would address the acute pain issue and provide relief for her that would give us time to further discuss more the aggressive surgical managements. She was brought to the operating room, placed on the table in the dorsal lithotomy position with Yellofin stirrups, prepped and draped in standard sterile fashion and a hard time-out was taken prior to proceeding. A vaginal sponge was placed to serve as a uterine manipulator and a Pryor was placed. Attention was turned to the abdomen, where an infraumbilical incision was made and the optical entry was made into the abdomen without complication. The abdomen was insufflated. The patient was placed in steep Trendelenburg and under direct visualization, right and left lower quadrant ports were placed. Manipulation of the pelvic organs allowed us to see that there was significant pelvic venous congestion as well as multiple endometriotic implants scattered throughout the pelvis. Photography was used to document the worst of these implants, notably on the left ovary, the right fallopian tube, the cul-de-sac and uterosacral ligaments, as well as the anterior surface of the uterus. The left ovary was additionally noted to be grossly dilated with what appeared to be a 5-6 cm cyst, arising from the central stroma of the ovary and leaving [id number] recognizable ovarian tissue at its margins. The right ovary was seen to be normal and the uterus itself was grossly normal in shape. The appendix was surgically absent and the upper quadrants of the abdomen were within normal limits. The decision was made to perform a left salpingo-oophorectomy. This was accomplished using the Harmonic scalpel to ligate and divide the IP ligament, dissect the mesosalpinx and mesovarium and then disconnect the uteroovarian ligament and tubal stump from the cornu. Unfortunately, there was significant bleeding from a vessel at the left uterine cornu. This was addressed using a combination of Harmonic scalpel and ultimately, also the Kleppinger, which was applied around a bleeding vessel at the uterine cornu and ultimately, was successful in achieving good hemostasis. Multiple applications of saline irrigation followed suction were used to ensure that the hemostasis was reliable and then no further bleeding was occurring in this area. Once I was satisfied that the working site was completely dry, we switched to a 5-mm scope through the right lower quadrant port to allow placement of the EndoCatch bag through the umbilicus. This was used to scoop the previously detached left ovary and tube into the EndoCatch bag and then brought out through the umbilicus. The tube was extracted first from the bag using a Cassie clamp and then the ovary ruptured for a brown translucent fluid, slightly thinner than the classic endometrioma, but more thick and turbid than simple follicular fluid. Once the ovary had been thus decompressed, the bag was able to be retrieved completely through the umbilicus intact and was handed off to serve as a surgical specimen. The 12 port was then reintroduced through the umbilical incision and a final survey of the abdomen revealed good hemostasis at all working sites and no remaining free fluid. All ports were then removed. The abdomen was desufflated and the umbilical incision was closed with a UR-6 Vicryl suture at the fascial layer of the umbilicus. All port sites were then closed using Dermabond at the skin. The Pryor and the vaginal manipulator were removed and the patient was then awakened and transferred in stable condition to the PACU. I attest to the content of the Intraoperative Record and any orders documented therein. Any exceptio ns are noted below.
--- NOTE | 2016-09-01 00:58 | EMERGENCY ROOM VISIT NOTE ---
History First contact with patient: 15:35 Chief Complaint: PELVIC PAIN Stated Complaint: PELVIC PAIN SEVERE RT SIDE,SEEN THURS AND WORSE History of Present Illness Patient is a 30-year-old white female who returns to the emergency department for ongoing pelvic pain, primarily right sided. Patient was seen and evaluated here 3 days ago for similar complaint. Patient reports that she had an IUD placed approximately 2 weeks ago. She developed discomfort afterwards and had an ultrasound which noted the IUD to be malpositioned. That IUD was removed and another one was placed 5 days ago. Again, post procedure the patient had pain and cramping. She reported constant cramping pain and sharp pain in the right lower quadrant that radiated through to the back. She again had another ultrasound performed which showed a left ovarian cyst with some free fluid around the left ovary. Her pain persisted, and she again had a repeat ultrasound in the gynecology office 3 days ago which demonstrated increased fluid in the pelvis. She is referred here to the emergency department for the increased pain. She was seen and thoroughly evaluated here with a pelvic ultrasound and pelvic CT, which demonstrated a moderate amount of blood and/or free fluid in the pelvic cul-de-sac, likely related to cyst structure. Intrauterine device was ever really positioned. Ultrasound documented a 5 cm left ovarian cyst. Patient was seen in the emergency department by Dr. Christiansen, and ultimately she decided on conservative management. The patient was discharged home on Percocet. Patient has been taking Percocet 1 tablet every 4 hours and it is not helping with her discomfort. She notes spotting that is alternating between bright red and brown. She notes an increase in her primarily right-sided pain. It is constant and now begins to radiate across her entire lower abdomen to her left. She notes sweats, nausea and feeling near syncopal with the extreme waves of pain. She has not passed out. She denies feeling lightheaded or dizzy with position changes. She denies fever or vomiting. She presently rates her pain a 5/10. Review of Systems Review of systems as per HPI. All other systems reviewed were negative. 10 systems reviewed. Past Medical/Surgical History Medical Problems: (1) Anxiety (2) Arm contusion (3) Asthma (4) Bipolar disorder (5) Endometriosis (6) Headache (7) Paresthesias (8) Right lower quadrant abdominal pain (9) Ruptured ovarian cyst (10) Ruptured ovarian cyst (11) Stomach problems Surgical Problems: (1) Hx of appendectomy (2) Hx of section (3) Hx of dilation and curettage Electronic medical records are reviewed and summarized as above/below. See Problem List. Social History Smoking Status: Never Smoker Alcohol Use: none Drug Use: none Housing Status: lives alone, lives with family Occupation Status: employed Current/Historical Medications Scheduled Escitalopram (Lexapro), 10 MG PO HS Levonorgestrel (Iud) (Mirena), 1 EA PV UD Norgestimate-Ethinyl Estradiol (Ortho Tri-Cyclen), 1 TAB PO DAILY Topiramate (Topamax), 100 MG PO HS Topiramate (Topamax), 50 MG PO QAM Scheduled PRN Ibuprofen (Motrin), 600 MG PO Q6H PRN for Pain Oxycodone/Acetaminophen 5MG/325MG (Percocet 5MG/325MG), 1-2 TABS PO Q4 PRN for Pain Allergies Coded Allergies: Brompheniramine (Verified Allergy, Unknown, ., 08/31/16) Phenylpropanolamine (Verified Allergy, Unknown, ., 08/31/16) Physical Exam Vital Signs Date Time Temp Pulse Resp B/P Pulse Ox O2 Delivery O2 Flow Rate FiO2 08/31/16 23:16 36.8 75 16 137/82 98 Room Air 08/31/16 23:00 68 16 118/74 97 Room Air 08/31/16 22:30 73 15 123/75 96 Room Air 08/31/16 22:10 36.5 76 13 101/65 99 Room Air 08/31/16 22:09 36.5 08/31/16 22:07 69 15 08/31/16 22:07 68 15 96 08/31/16 22:05 101/65 08/31/16 22:02 66 16 96 08/31/16 22:02 66 16 08/31/16 22:00 103/80 08/31/16 21:57 69 14 98 08/31/16 21:57 70 14 08/31/16 21:56 110/78 08/31/16 21:52 75 15 99 08/31/16 21:52 73 15 08/31/16 21:50 118/65 08/31/16 21:47 68 18 100 08/31/16 21:47 68 18 08/31/16 21:45 120/67 08/31/16 21:42 70 19 100 08/31/16 21:42 70 19 08/31/16 21:41 69 18 08/31/16 21:41 68 18 100 08/31/16 21:40 121/78 08/31/16 21:36 70 16 98 08/31/16 21:36 70 16 08/31/16 21:35 112/67 08/31/16 21:31 72 26 98 08/31/16 21:31 69 26 08/31/16 21:30 107/62 08/31/16 21:29 113/72 08/31/16 21:26 78 16 92 08/31/16 21:26 79 16 08/31/16 21:22 127/72 08/31/16 21:21 35.7 85 20 127/72 98 Mask 10 08/31/16 21:21 82 14 96 08/31/16 21:21 82 14 08/31/16 19:01 69 16 137/87 98 Room Air 08/31/16 17:01 67 118/90 95 08/31/16 15:15 36.7 86 18 121/88 97 Room Air Physical Exam CONSTITUTIONAL: Uncomfortable appearing 30-year-old white female who is awake and alert and in mild distress due to her abdominal pain. EYES: Pupils equal, round, reactive to light and accommodation. EOMs intact without nystagmus. Sclera are anicteric. ENT: Tympanic membranes intact, with normal landmarks. External canals are clear. Oral and nasopharynx are clear. Mucous membranes are moist, no lesions , tongue and gums appear normal. CARDIOVASCULAR: Regular rate and rhythm, with normal S1 and S2, no murmur or gallop or rub is heard. No carotid bruits auscultated. No JVD. Peripheral pulses easily palpable. RESPIRATORY: Breath sounds equal and clear to auscultation without wheezes, rales, or rhonchi heard. Full and equal chest expansion without accessory muscle use or retractions. ABDOMEN: Bowel sounds are present. Abdomen is soft, obese, tender to palpation in the right lower quadrant, suprapubic region and left lower quadrants, with voluntary guarding. No rebound or rigidity. INTEGUMENTARY: No lesions or rash, normal skin turgor. LYMPH: No lymphadenopathy. Medical Decision & Procedures ER Provider Diagnostic Interpretation: ULTRASOUND OF THE PELVIS CLINICAL HISTORY: Pelvic pain. Ruptured ovarian cyst. COMPARISON STUDY: Pelvic CT dated 08/28/2016. Pelvic ultrasound dated 08/28/2016. TECHNIQUE: Real-time, grayscale, and color flow sonography of the pelvis is performed both transabdominally and endovaginally. Images are reviewed in the transverse and longitudinal planes. FINDINGS: Uterus: The uterus is normal in size and echotexture, measuring 8.6 x 4.1 x 5.1 cm. Endometrium: An intrauterine device is in place. The endometrium is normal in appearance, and the endometrial stripe is normal in thickness measuring up to 0.8 cm. Ovaries: The ovaries are normal in size and morphology. The right ovary measures 2.2 x 1.8 x 1.5 cm and the left ovary measures 5.7 x 3.4 x 5.3 cm. A simple appearing left ovarian cyst measures up to 5.0 cm. Normal Doppler waveforms are shown within both ovaries. Pelvis: There is trace free fluid in the cul-de-sac. No concerning adnexal lesion is seen. IMPRESSION: 1. There is a 5.0 cm simple appearing cyst again seen in the left ovary. There is no sonographic evidence of ovarian torsion at the time of examination. 2. The uterus and right ovary normal in appearance noting an intrauterine device in place. 3. There is trace free fluid in the cul-de-sac. The volume of free fluid has decreased from 08/28/2016. Laboratory Results 08/31/16 16:08 Red Blood Count 4.47, Mean Corpuscular Volume 87.5, Mean Corpuscular Hemoglobin 28.9, Mean Corpuscular Hemoglobin Concent 33.0, Mean Platelet Volume 12.6, Neutrophils (%) (Auto) 53.4, Lymphocytes (%) (Auto) 38.1, Monocytes (%) (Auto) 6.4, Eosinophils (%) (Auto) 1.6, Basophils (%) (Auto) 0.4, Neutrophils # (Auto) 3.73, Lymphocytes # (Auto) 2.66, Monocytes # (Auto) 0.45, Eosinophils # (Auto) 0.11, Basophils # (Auto) 0.03 08/31/16 16:08 Test 08/31/16 16:08 White Blood Count 6.99 K/uL (4.8-10.8) Red Blood Count 4.47 M/uL (4.2-5.4) Hemoglobin 12.9 g/dL (12.0-16.0) Hematocrit 39.1 % (37-47) Mean Corpuscular Volume 87.5 fL (80-100) Mean Corpuscular Hemoglobin 28.9 pg (25-34) Mean Corpuscular Hemoglobin Concent 33.0 g/dl (32-36) Platelet Count 204 K/uL (130-400) Mean Platelet Volume 12.6 fL (7.4-10.4) Neutrophils (%) (Auto) 53.4 % Lymphocytes (%) (Auto) 38.1 % Monocytes (%) (Auto) 6.4 % Eosinophils (%) (Auto) 1.6 % Basophils (%) (Auto) 0.4 % Neutrophils # (Auto) 3.73 K/uL (1.4-6.5) Lymphocytes # (Auto) 2.66 K/uL (1.2-3.4) Monocytes # (Auto) 0.45 K/uL (0.11-0.59) Eosinophils # (Auto) 0.11 K/uL (0-0.5) Basophils # (Auto) 0.03 K/uL (0-0.2) RDW Standard Deviation 43.3 fL (36.4-46.3) RDW Coefficient of Variation 13.4 % (11.5-14.5) Immature Granulocyte % (Auto) 0.1 % Immature Granulocyte # (Auto) 0.01 K/uL (0.00-0.02) Prothrombin Time 9.9 SECONDS (9.0-12.0) Prothromb Time International Ratio 0.9 (0.9-1.1) Activated Partial Thromboplast Time 24.7 SECONDS (21.0-31.0) Partial Thromboplastin Ratio 1.0 Anion Gap 9.0 mmol/L (3-11) Est Creatinine Clear Calc Drug Dose 123.5 ml/min Estimated GFR () 119.1 Estimated GFR (Non- 102.7 BUN/Creatinine Ratio 13.8 (10-20) Calcium Level 9.2 mg/dl (8.5-10.1) Total Bilirubin 0.3 mg/dl (0.2-1) Aspartate Amino Transf (AST/SGOT) 13 U/L (15-37) Alanine Aminotransferase (ALT/SGPT) 14 U/L (12-78) Alkaline Phosphatase 63 U/L (45-117) Total Protein 7.2 gm/dl (6.4-8.2) Albumin 3.2 gm/dl (3.4-5.0) Globulin 4.0 gm/dl (2.5-4.0) Albumin/Globulin Ratio 0.8 (0.9-2) Human Chorionic Gonadotropin, Qual NEG (NEG) Medications Administered Medications (Trade) Dose Ordered Sig/Gwendolyn Route Start Time Stop Time Status Last Admin Dose Admin Sodium Chloride 1,000 ml @ 999 mls/hr Q1H1M STAT IV 08/31/16 15:47 08/31/16 16:47 DC 08/31/16 16:25 999 MLS/HR Sodium Chloride (Nss 1000ml) 1,000 ml @ 250 mls/hr Q4H STAT IV 08/31/16 15:47 08/31/16 19:46 DC 08/31/16 15:47 250 MLS/HR Ondansetron HCl (Zofran Inj) 4 mg NOW STAT IV 08/31/16 15:47 08/31/16 15:51 DC 08/31/16 16:25 4 MG Hydromorphone HCl (Dilaudid Inj) 0.5 mg NOW STAT IV 08/31/16 15:47 08/31/16 15:51 DC 08/31/16 16:26 0.5 MG Hydromorphone HCl 1 mg 1 mg NOW STAT IV 08/31/16 17:24 08/31/16 17:25 DC 08/31/16 17:45 1 MG Cefazolin Sodium/ Dextrose (Ancef Iv/D5 50ml) 60 ml @ 100 mls/hr PREOP IV 08/31/16 19:00 08/31/16 23:59 DC 08/31/16 19:42 100 MLS/HR Ondansetron HCl (Zofran Inj) 4 mg ONE PRN IV 08/31/16 20:00 09/01/16 00:17 DC 08/31/16 21:28 4 MG Ketorolac Tromethamine (Toradol Inj) 30 mg ONE PRN IV. 08/31/16 20:00 09/01/16 00:17 DC 08/31/16 21:35 30 MG Hydromorphone HCl 0.25 mg 0.25 mg Q5M PRN IV 08/31/16 20:00 09/01/16 00:17 DC 08/31/16 21:45 0.25 MG Promethazine HCl/ Sodium Chloride (Phenergan Inj/ Nss 50ml) 50.5 ml @ 202 mls/hr ONE PRN IV 08/31/16 20:00 09/01/16 00:17 DC 08/31/16 21:50 202 MLS/HR ED Course The patient was seen and evaluated as above. Her old records are reviewed, including her recent ED visit. IV access was obtained. She was hydrated with normal saline solution and made nothing by mouth. She was medicated with Dilaudid 1 mg IV and Zofran 4 mg IV. Serum hCG, CBC with differential, coags, CMP and ABO Rh were drawn. Repeat pelvic ultrasound was performed. I was able to review the patient with Dr. Avina of [facility], who is familiar with the patient and she placed her most recent intrauterine device. She agreed with ED workup. She is in house and will see the patient when the workup is complete. Patient's laboratory studies revealed a normal white count of 6900. H&H is 12.9 and 39.1, essentially unchanged from prior labs. Coags and platelets are normal. Chemistries are unremarkable. test is negative. Pelvic ultrasound today again demonstrated a 5 cm simple cyst in the left ovary. No evidence for torsion. Right ovary and uterus appeared normal, with intrauterine device in place. Trace free fluid in the pelvic cul-de-sac appears to have decreased from 08/28. Patient was reassessed and she returned from ultrasound and continued to complain of discomfort she was medicated with Dilaudid 1 mg IV. Patient was seen and evaluated in the emergency department by Dr. Avina who removed her intrauterine device, which did not provide significant relief, and therefore she has elected to take the patient to the operating room for exploratory laparoscopy, possible cystectomy versus drainage of cyst, etc. Please refer to her gynecologic consultation for further information. The patient was taken to the operating room by Dr. Avina. She otherwise remained hemodynamically stable while in the emergency department. She rated her discomfort a 5/10 when she was discharged from the emergency department. Differential diagnoses entertained included ovarian cyst rupture, ovarian torsion, pain from free pelvic fluid, endometriosis, IUD malfunction, PID, tubo- ovarian abscess, , ectopic , UTI, pyelonephritis, among others. Medical Decision See ED course. Impression Primary Impression: Left ovarian cyst Additional Impression: Right lower quadrant abdominal pain Departure Information Dispostion Being Evaluated By Surgeon Prescriptions Norgestimate-Ethinyl Estradiol (ORTHO TRI-CYCLEN) 1 Tab Tab 1 TAB PO DAILY for 28 Days, #28 TAB 11 Refills Prov: Amanda Avina MD 08/31/16 Referrals No Doctor, Assigned (PCP) Patient Instructions [facility], [facility] Problem Qualifiers
[2016-10-15] MEDS ORDERED: NORG0.253 PO (12:19)
[2016-11-10] MEDS ORDERED: OXYC-57 PO (11:43)
== END 2016-08-31 19:48 | disposition home or self-care (01) ==
LOC: C.EDB 15:12 → C.EDC 19:48
DX: N83.202 Unspecified ovarian cyst, left side (principal); N80.1 Endometriosis of ovary; R10.31 Right lower quadrant pain; R10.2 Pelvic and perineal pain; Z97.5 Presence of (intrauterine) contraceptive device; F41.9 Anxiety disorder, unspecified; F31.9 Bipolar disorder, unspecified; J45.909 Unspecified asthma, uncomplicated; Z79.899 Other long term (current) drug therapy; Z87.19 Personal history of other diseases of the digestive system; Z87.42 Personal history of other diseases of the female genital tract

== ENCOUNTER → 2016-09-23 | Outpatient (CLI) | payer OTHER ==
[~2016-09-23] MED LIST changes: +LXP/10 PO; +NORG0.253 PO; +NORGTAB36 PO; +TOPI50TA16 PO
== END | disposition home or self-care (01) ==
LOC: C.LABSPEC 10:48
PROVIDERS: ATTEND Obstetrics & Gynecology
DX: J02.9 Acute pharyngitis, unspecified (principal)

== ENCOUNTER 2016-10-25 02:41 | Emergency (ER) | payer OTHER ==
[~2016-10-25] VITALS: Ht 165.1 cm; Wt 101.4 kg
[~2016-10-25 02:41] MED LIST changes: -ESCI10TA17 PO; -LEVOIUD PV; -LXP/10 PO; -NORGTAB36 PO; -OXYC-57 PO; -TOPI100T20 PO; -TOPI50TA16 PO; -TOPI50TA24 PO
[2016-10-25 02:52] VITALS: TEMP 36.8; Ht 165.1 cm; Wt 101.4 kg
[2016-10-25] MEDS ORDERED: OXYCODONE IR HOME PACK PO ONE (03:30)
[2016-10-25 03:33] VITALS: BP 136/87; PULSE 98; O2SAT 96
--- NOTE | 2016-10-25 03:41 | EMERGENCY ROOM VISIT NOTE ---
History First contact with patient: 03:08 Chief Complaint: DENTAL PAIN Stated Complaint: TOOTHACHE Nursing Triage Summary: c/o front tooth pain x 1 week. pt took augmentin x 3 days and was seen today at urgent care and prescribed clindamycin. pt taking ibuprofen and percocet without relief. History of Present Illness The patient is a 30 year old female who presents to the Emergency Room with complaints of dental pain for the past week who has been on Augmentin and now clindamycin. Patient took Percocet and Motrin with no relief of symptoms. She states she tried to get an appointment with [facility] but was unsuccessful. Patient denies facial swelling, fever, dysphagia, cough, recent illness, sore throat, headache, chest pain, dyspnea. She is tolerating by mouth fluids and food. Review of Systems See HPI for pertinent positives & negatives. A total of 10 systems reviewed and were otherwise negative. Past Medical/Surgical History Medical Problems: (1) Anxiety (2) Arm contusion (3) Asthma (4) Bipolar disorder (5) Endometriosis (6) Headache (7) Paresthesias (8) Right lower quadrant abdominal pain (9) Ruptured ovarian cyst (10) Ruptured ovarian cyst (11) Stomach problems Surgical Problems: (1) Hx of appendectomy (2) Hx of section (3) Hx of dilation and curettage Social History Smoking Status: Never Smoker Alcohol Use: none Drug Use: none Housing Status: lives alone, lives with family Occupation Status: employed Current/Historical Medications Scheduled Norgestimate-Ethinyl Estradiol (Ortho-Cyclen), 1 TAB PO DAILY Scheduled PRN Ibuprofen (Motrin), 600 MG PO Q6H PRN for Pain Allergies Coded Allergies: Brompheniramine (Verified Allergy, Mild, HARD TO AROUSE, 10/25/16) Phenylpropanolamine (Verified Allergy, Mild, HARD TO AROUSE, 10/25/16) Physical Exam Vital Signs Date Time Temp Pulse Resp B/P (MAP) Pulse Ox O2 Delivery O2 Flow Rate FiO2 10/25/16 02:52 36.8 117 20 142/88 99 Room Air Physical Exam VITALS: Vitals are noted on the nurse's note and reviewed by myself. Vital signs CARDIAC: No chest pain, sweating, shortness of breath, leg swelling, or irregular heart beat.e. GENERAL: White female pacing the room crying, in no acute distress, nondiaphoretic, well-developed well-nourished. SKIN: The skin was without rashes, erythema, edema, or bruising. There is no tenting of the skin. Capillary reflex less than 2 seconds. HEAD: Normocephalic atraumatic. EARS: External auditory canals clear, tympanic membranes pearly quintanilla without erythema or effusion bilaterally. EYES: Pupils equal round and reactive to light and accommodation. Conjunctivae without injection, sclerae without icterus. Extraocular movements intact. NOSE: Patent, turbinates without inflammation or discharge. No sinus tenderness. MOUTH: Mucous membranes moist. Pharynx without erythema or exudate. Uvula midline. Airway patent. Tongue does not deviate. Dental exam: Extensive plaque buildup with central upper incisors tender to palpation with no palpable abscess or gum erythema or edema. No palpable abscess visualized. No Carter angina NECK: Supple without nuchal rigidity. No lymphadenopathy. No thyromegaly. Cervical spine is nontender. No JVD. No meningeal signs HEART: Regular rate and rhythm without murmurs gallops or rubs. LUNGS: Clear to auscultation bilaterally without wheezes, rales or rhonchi. No dullness to percussion. No retractions or accessory muscle use. MUSCULOSKELETAL: No muscle atrophy, erythema, or edema noted. NEURO: Patient was alert and oriented to person place and time. Normal sensation to light and sharp touch. No focal neurological deficits. Medical Decision & Procedures Medications Administered Medications (Trade) Dose Ordered Sig/Gwendolyn Route Start Time Stop Time Status Last Admin Dose Admin Oxycodone HCl (Roxicodone Immediate Rel 5MG Home Pack) 1 homepack UD ONCE PO 10/25/16 03:30 10/25/16 03:31 DC 10/25/16 03:29 1 HOMEPACK ED Course Prior records reviewed and summarized as above. Triage Nursing notes reviewed. The patient's history was concerning for the dental pain Differential diagnosis: Etiologies such as cellulitis, abscess, gingivitis, Carter angina, drug-seeking behavior, as well as others were entertained.. Physical examination: The physical examination was consistent with dental pain ER treatment provided: Home pack of OxyIR On reassessment the patient felt better. Diagnostics interpreted by me: Deferred This appears to be isolated dental pain. Patient was well informed that she can walk into [facility] for her dental checkup. She states that she tried calling with no success. I informed her that they have a walk-in basis. I informed the parents of this also. She is counseled on proper dental hygiene and was advised to continue her antibiotics. Patient had no palpable abscess. No signs of Carter angina. She is advised to return to the ER immediately for fevers, facial swelling, dysphagia, worsening signs or symptoms or as needed. By the evaluation outlined above emergent etiologies such as abscess, Carter angina, as well as others were deemed relatively unlikely. The pt informed about the findings as listed above. All questions were answered and pleased with the treatment. Return instructions were outlined and the patient was discharged in stable condition. Referral: The patient was referred dentistry for follow-up in 2 to 3 days for a recheck of the current condition. Medical Decision As above Impression Primary Impression: Dental caries Additional Impression: Tooth pain with chewing Departure Information Dispostion Home / Self-Care Condition GOOD Referrals No Doctor, Assigned (PCP) Forms HOME CARE DOCUMENTATION FORM, IMPORTANT VISIT INFORMATION Patient Instructions Dec[facility], My [facility] Additional Instructions Continue Clindamycin 150mg: Take one pill 4 times daily for 10 days for your infection. Take with food, but avoid dairy. Avoid prolonged sun exposure since this medication makes you temporarily more susceptible to sunburns. All antibiotics can cause diarrhea. If this occurs and you feel worse or it does not resolve in 1-2 days follow up with your doctor or return to the Emergency Department as this could be signs of serious underlying problems. Any medication can cause an allergic reaction, stop the pills immediately and return to the ER for rash, hives, breathing difficulties, or swelling. Oxycodone (OxyIR) 5mg: Take 1-2 pills every four hours for breakthrough pain. Avoid alcohol, operating machinery or dangerous equipment, working on ladders or roofs, DRIVING, or situations where being under the influence may be dangerous. It is recommended to use an gsnu-bpe-qzmmzko stool softener such as Colace, 100mg twice daily while taking this medication to avoid constipation. Ibuprofen(Motrin, Advil) may be used for fever or pain. Use 600mg every six hours as needed. Take with food. Avoid using more than 2400mg in a 24 hour period. Do not use 2400mg per day for more than three consecutive days without physician direction. Prolonged inappropriate use can lead to stomach upset or ulcers. This medication can be taken if you need to drive, work, or perform activities which may be dangerous when taking narcotic pain medication. (AND/OR) Acetaminophen(Tylenol) may be used for fever or pain. Use 1000mg every six hours as needed. Avoid using more than 3000mg in a 24 hour period. This medication can be taken if you need to drive, work, or perform activities which may be dangerous when taking narcotic pain medication. Bent[place] teeth twice a day, floss daily and do warm saltwater gargles 3 times a day. See a dentist as soon as possible for definitive care for your dental problem. Return to ER sooner for facial swelling, fever, redness, worsening signs or symptoms or as needed. Problem Qualifiers
[2016-11-10] MEDS ORDERED: OXYC-57 PO (11:43)
== END 2016-10-25 03:35 | disposition home or self-care (01) ==
LOC: C.EDB 02:41
DX: K02.9 Dental caries, unspecified (principal); K08.89 Other specified disorders of teeth and supporting structures; J45.909 Unspecified asthma, uncomplicated; F41.9 Anxiety disorder, unspecified

== ENCOUNTER → 2016-10-28 | Outpatient (CLI) | payer OTHER ==
[~2016-10-28] MED LIST changes: +LXP/10 PO; +OXYC-57 PO; +TOPI50TA16 PO
[2016-10-28 09:32] LABS: BASO % 0.2 %; BASO ABS # 0.01 K/uL (0-0.2); COMPLETE YES; EOS % 1.7 %; HEMATOCRIT 38.2 % (37-47); IG% 0.2 %; LYMPH % 33.5 %; LYMPH ABS # 1.73 K/uL (1.2-3.4); MEAN CELL VOLUME 88.2 fL (80-100); MEAN CORPUSCULAR HEMOGLOBIN 28.2 pg (25-34); MEAN CORPUSCULAR HGB CONC 31.9 g/dl (32-36); MEAN PLATELET VOLUME 12.1 fL (7.4-10.4); MONO % 7.4 %; PLATELET COUNT 226 K/uL (130-400); RED BLOOD COUNT 4.33 M/uL (4.2-5.4); WHITE BLOOD COUNT 5.16 K/uL (4.8-10.8)
== END | disposition home or self-care (01) ==
LOC: C.LAB1850 08:09
PROVIDERS: ATTEND Obstetrics & Gynecology
DX: Z01.818 Encounter for other preprocedural examination (principal); N80.9 Endometriosis, unspecified

== ENCOUNTER 2016-11-10 05:26 | Observation (INO) | payer OTHER ==
[2016-10-15 12:07] VITALS: BMI 36.0
[2016-11-10] VITALS (9 sets, daily range): BP systolic 124–167; BP diastolic 78–110; PULSE 68–92; TEMP 36.6–36.9; O2SAT 92–100; Ht 165.1 cm; Wt 100.0 kg
[~2016-11-10] VITALS: Ht 165.1 cm; Wt 100.0 kg
[~2016-11-10 05:26] MED LIST changes: -LXP/10 PO; -OXYC-57 PO; -TOPI50TA16 PO
[2016-11-10] MEDS ORDERED: TOPI50TA16 PO (05:52)
[2016-11-10] MEDS ORDERED: LXP/10 PO (05:52)
[2016-11-10] MEDS ORDERED: CEFAZOLIN 2000 MG/60 ML D5W IV SCH (06:00)
[2016-11-10] MEDS ORDERED: LACTATED RINGER'S 1000ML 1,000 ML IV SCH ×3 (06:00→11:00)
[2016-11-10] MEDS ORDERED: ACETAMINOPHEN 1000 MG/100 ML IV IV ONE (06:07)
[2016-11-10] MEDS ORDERED: FENTANYL CITRATE INJ 50 MCG/1 ML 2 ML VIAL ONE (06:29)
[2016-11-10] MEDS ORDERED: GLYCOPYRROLATE INJ 0.2 MG/ML VIAL ONE (06:29)
[2016-11-10] MEDS ORDERED: MIDAZOLAM HCL 1 MG/ML 2ML VIAL ONE (06:29)
[2016-11-10] MEDS ORDERED: PROPOFOL IV EMULSION 10 MG/ML 20 ML VIAL IV ONE (06:29)
[2016-11-10] MEDS ORDERED: SUCCINYLCHOLINE CHLORIDE 20 MG/ML 10 ML VIAL IV ONE (06:29)
[2016-11-10] MEDS ORDERED: NEOSTIGMINE METHYLSULFATE 5 MG/5 ML SYR ONE (06:29)
[2016-11-10] MEDS ORDERED: DEXAMETHASONE SOD INJ 4 MG/ML VIAL ONE (06:29)
[2016-11-10] MEDS ORDERED: LIDOCAINE HCL 2% 2 ML VIAL (20MG/ML) ONE (06:29)
[2016-11-10] MEDS ORDERED: ROCURONIUM BROMIDE 10 MG/ML 5 ML VIAL ONE (06:29)
[2016-11-10] MEDS ORDERED: ONDANSETRON INJ 2 MG/ML 2 ML VIAL ONE ×2 (06:29→08:07)
[2016-11-10] MEDS ORDERED: EpHEDrine SULFATE INJ 50 MG/ML AMP IV PRN (06:30)
[2016-11-10] MEDS ORDERED: ONDANSETRON INJ 2 MG/ML 2 ML VIAL IV PRN ×2 (06:30→09:15)
[2016-11-10] MEDS ORDERED: ATROPINE SULFATE 0.1 MG/ML 5ML SYR IV PRN (06:30)
--- NOTE | 2016-11-10 06:59 | History & Physical Bridge Note ---
H&P Re-Evaluation Bridge Note: I have examined the patient, reviewed the History & Physical and in the interval since the performance of the History & Physical I have noted the following changes of clinical significance: No changes noted. Patient, accompanied by family, continues to be sure she wishes to proceed with definitive treatment by hysterectomy. She remains sure that her family is complete. She remains aware that she will retain one ovary at the risk of ongoing endometriosis and cyclic pain.
[2016-11-10] MEDS ORDERED: HYDROmorphone INJ 2 MG/ML SYR/VIAL ONE (07:47)
[2016-11-10] MEDS ORDERED: METHYLENE BLUE 1% 10 ML VIAL ONE (08:05)
[2016-11-10] MEDS ORDERED: SIMETHICONE 80 MG CHEW PO PRN (09:15)
[2016-11-10] MEDS ORDERED: PROMETHAZINE HCL INJ 12.5 MG in SODIUM CHLORIDE 0.9% 50ML 50 ML IV PRN (09:15)
[2016-11-10] MEDS ORDERED: IBUPROFEN 600 MG TAB PO PRN (09:15)
[2016-11-10] MEDS ORDERED: KETOROLAC TROMETHAMINE 30 MG/ML VIAL IV. PRN (09:15)
[2016-11-10] MEDS ORDERED: OXYCODONE/ACETAMINOPHEN 5-325 TAB PO PRN ×2 (09:15)
[2016-11-10] MEDS ORDERED: PROMETHAZINE HCL INJ 25 MG in SODIUM CHLORIDE 0.9% 50ML 50 ML IV PRN (09:15)
[2016-11-10] MEDS ORDERED: MEPERIDINE HCL 50 MG/ML CARP IV PRN ×2 (09:15)
[2016-11-10] MEDS ORDERED: ACETAMINOPHEN 325 MG TAB PO PRN (09:15)
--- NOTE | 2016-11-10 09:15 | [facility] Post Operative Brief Note ---
Immediate Operative Summary Operative Date Nov 10, 2016. Pre-Operative Diagnosis Endometriosis and menorrhagia Post-Operative Diagnosis Same as pre-operative Procedure(s) Performed Robotic assisted total laparoscopic hysterectomy with right salpingectomy and cystoscopy Surgeon Dr. Amanda Avina MD Tap Out Operator Surgeon(s) None Estimated Blood Loss 20ml Findings Endometriotic implants throughout pelvis, including on R fallopian tube which was removed, as well as overlying the bilateral ureters. Enlarged R ovary with two dominant cysts of straw-colored fluid that were drained to decompress ovary. L ovary and tube surgically absent. Specimens A.Uterus, cervix, and right fallopian tube Complication(s) None Disposition Recovery Room / PACU
[2016-11-10] MEDS: FENTANYL CITRATE INJ 50 MCG/1 ML 2 ML VIAL IV PRN ×4 (09:18→09:33)
[2016-11-10] MEDS: HYDROmorphone INJ 1 MG/ML SYR IV PRN ×4 (09:38→09:57)
--- NOTE | 2016-11-10 10:24 | Anesthesiology Progress Note ---
Anesthesia Post Op Note Date & Time Nov 10, 2016 at 10:23 Vital Signs Pain Intensity: 5 Vital Signs Past 12 Hours Date Time Temp Pulse Resp B/P (MAP) Pulse Ox O2 Delivery O2 Flow Rate FiO2 11/10/16 10:20 82 20 156/91 98 Nasal Cannula 2 11/10/16 10:10 36.1 72 10 142/96 98 Nasal Cannula 2 11/10/16 10:00 92 12 148/94 98 Nasal Cannula 2 11/10/16 09:50 86 14 162/99 99 Nasal Cannula 2 11/10/16 09:40 73 14 153/93 99 Nasal Cannula 2 11/10/16 09:30 76 17 142/97 99 Mask 10 11/10/16 09:20 81 15 142/85 100 Mask 10 11/10/16 09:10 36.0 92 17 149/95 99 Mask 10 11/10/16 05:53 36.6 68 18 147/88 (107) 99 Room Air Notes Mental Status: alert / awake / arousable, participated in evaluation Pt Amnestic to Procedure: Yes Nausea / Vomiting: adequately controlled Pain: adequately controlled Airway Patency, RR, SpO2: stable & adequate BP & HR: stable & adequate Hydration State: stable & adequate Anesthetic Complications: no major complications apparent
[2016-11-10] MEDS ORDERED: IV FLUIDS COMPLETED PRN (11:30)
--- NOTE | 2016-11-10 11:33 | Medical Student: [facility] ---
Immediate Operative Summary Operative Date Nov 10, 2016. Pre-Operative Diagnosis Endometriosis Post-Operative Diagnosis Endometriosis Procedure(s) Performed Rotbot assisted total laproscopic hysterectomy with R salpingectomy and cystoscopy Surgeon Dr. Avina [employer] Administrator Surgeon(s) None Estimated Blood Loss 20 mL Findings Pt had endometriosis along R fallopian tube which was removed. There was also endometriosis along the ureter. Fluids (cc crystalloids) 200 cc Specimens Uterus with cervix, R fallopian tube Anesthesia General Complication(s) None Disposition Recovery Room / PACU
[2016-11-10] MEDS ORDERED: OXYC-57 PO (11:43)
--- NOTE | 2016-11-10 11:45 | Discharge Instructions ---
Discharge Instructions Date of Service Nov 10, 2016. Visit Reason for Visit: Pelvic Pain, Endometriosis Discharge Discharge Diagnosis / Problem: Hysterectomy Discharge Goals Goal(s): Specific goals Activity Recommendations Activity Limitations: per Instructions/Follow-up section Anesthesia . Post Anesthesia Instructions: If you have had General Anesthesia or IV Sedation: * Do not drive today. * Resume driving when surgeon permits. * Do not make important decisions or sign legal documents today. * Call surgeon for: 1. Temperature elevations greater than 101 degrees F. 2. Uncontrollable pain. 3. Excessive bleeding. 4. Persistent nausea and vomiting. 5. Medication intolerance (nausea, vomiting or rash). * For nausea and vomiting use only clear liquids such as: tea, soda, bouillon until nausea subsides, then gradually increase diet as tolerated. * If you have any concerns or questions, call your surgeon's office. If physician is unavailable and it is an emergency, call 911 or go to the nearest emergency room. . Instructions / Follow-Up Instructions / Follow-Up POST OPERATIVE: BOWEL FUNCTION/MEDICATIONS: 1. Constipation pain and discomfort are the most common complaints 5-7 days after surgery. Points 2-6 address the things that can help. 2. Chewing gum can help stimulate the gut and help improve digestion and motility. 3. Milk of Magnesia 1-2 times per day until return of bowel function. 4. Colace is a stool softener that helps. Taking this 2-3 times per day until bowel function returns to normal is highly recommended. 5. Dulcolax is a laxative that may be used if several days have passed without a bowel movement. Alternatively Miralax may be used daily instead. 6. Drink plenty of fluids as this will also reduce constipation. 7. Narcotic pain medications will be prescribed by your physician. They are safe to use and we encourage you to use them. If you are not allergic, ibuprofen will also be prescribed. Many patients will be able to transition off of the narcotic medications to ibuprofen by postoperative day 3. ACTIVITY RECOMMENDATIONS: 1. Get plenty of rest and listen to your body. If you are tired, take a nap. 2. You may shower, but do not take a tub bath until you see your doctor at the 2 week post operative visit. 3. Absolutely NO intercourse and nothing in the vagina until you are examined by your doctor at the 6 week visit. At that visit it will be determined when such activities can be resumed. This can range from 6-12 weeks after your surgery depending on healing time. 4. The main physical activity in the first week should be walking. By the second week you can slowly increase activity. There are no limits on walking up and down stairs. 5. Do not lift more than 5-10 lbs for 4 weeks. Remember the "one-handed rule", i.e. if you can lift something with only one hand it's likely okay. 6. Minimize forest manager like vacuuming and exercising for 4 weeks. "Overdoing it" can lead to incisions not healing, pain and vaginal bleeding , so again, listen to your body. 7. Driving can be resumed when you feel able. Do not drive within 24 hours of taking a narcotic medication. EXPECTATIONS: 1. Vaginal spotting, bleeding and discharge are common after surgery. There may even be an odor to the discharge which is often related to sutures used in the vagina. If you experience heavy vaginal bleeding, call the office number day or night [phone]. 2. Bladder discomfort is common after surgery from the catheter. This usually resolves in 1-2 weeks. 3. By the end of the 3rd or 4th week you should be feeling much better. It may take up to 6 weeks for your energy levels to return to normal. 4. Narcotic medications have side effects such as: dizziness, headache, nausea and/or vomiting. If you suspect your pain medication is causing problems, call our office and we may be able to prescribe an alternate medication. 5. The skin incisions are often covered with a liquid bandage. This will gradually peel off over time. CALL THE OFFICE IF YOU HAVE ANY OF THE FOLLOWIN. Temperature of 101 degrees or higher. 2. Severe abdominal or pelvic pain not relieved by pain medication. 3. Persistent nausea or vomiting. 4. Increased pain with urination or difficulty urinating. 5. Bright red bleeding that soaks more than 1 pad per hour. CONTACT PHONE NUMBERS: Main Office: [phone] Surgical Nurse: [phone] extension [phone] FOLLOW-UP: Post-Operative Appointments: * Individual instructions will have been given about the timing of your first examination, but this is usually at the end of the second week home. * You will need to call the office at soon after discharge to make the appointment for your post-op check-up if it has not already been scheduled. * Additional information regarding activity, sexual intercourse and when to return to work will be given at this appointment. WE WISH YOU A SPEEDY RECOVERY! Diet Recommendations Recommended Home Diet: resume previous diet Procedures Procedures Performed: Robotic assisted total laparoscopic hysterectomy with right salpingectomy and cystoscopy Pending Studies Studies pending at discharge: no Medical Emergencies . Who to Call and When: Medical Emergencies: If at any time you feel your situation is an emergency, please call 911 immediately. . Non-Emergent Contact Non-Emergency issues call your: Primary Care Provider . . "Provider Documentation" section prepared by Amanda Avina. . [place] Drug Monitoring Program Search Results: no issues identified
--- NOTE | 2016-11-10 12:53 | OPERATIVE REPORT ---
DATE OF OPERATION: 11/10/2016 PREOPERATIVE DIAGNOSES: Endometriosis and menorrhagia with pelvic pain. POSTOPERATIVE DIAGNOSES: Same. PROCEDURE: Robotic assisted total laparoscopic hysterectomy with right salpingectomy and cystoscopy. SURGEON: Dr. Amanda Avina. ASSIST: None. ESTIMATED BLOOD LOSS: 20 mL. FINDINGS: Endometriotic implants throughout the pelvis including on the right fallopian tube as well as overlying both ureters enlarged right ovary with 2 dominant cysts containing straw colored fluid which were drained to decompress the ovary. Left ovary and tube surgically absent. SPECIMENS: Uterus, cervix, right fallopian tube. COMPLICATIONS: None. DISPOSITION: Stable to the recovery room. DESCRIPTION OF PROCEDURE: Sandra was placed on the table in the dorsal lithotomy position with Yellofin stirrups, prepped and draped in standard sterile fashion and a hard time-out was taken prior to proceeding. A Pryor and a [employer] uterine manipulator were placed in the typical manner. Uterus of note sounded to 10 cm. Entry was then made in an optical manner in the umbilicus using the prior recent incision. This was completed without complication. The patient was placed in Trendelenburg, the abdomen was insufflated and the right and left lower quadrant ports were placed under direct visualization. The left tube and ovary were noted to be surgically absent as expected; however, there continued to be endometriotic implants throughout the left side of the pelvis. The right tube and ovary were present, endometriosis was noted on the tube and the ovary was noted to be grossly enlarged with 2 cysts. There were significant endometriotic implants throughout the right side of the pelvis as well and exploration of the cul-de-sac and the anterior cul-de-sac revealed endometriosis there as well. Two stab incisions were made in the right ovary, one in each of the evident cyst in a thin-walled location in order to drain a straw colored fluid from each cyst and decompress the ovary to allow easier dissection. Surgery began with dissection of the right fallopian tube off of the mesosalpinx with ligation and division of the right utero-ovarian ligament and the right round ligament. We then ligated and divided the left round ligament and created a bladder flap. The broad ligament was dissected to skeletonize the uterine arteries which were ligated and divided bilaterally, colpotomy was completed and the cervix, uterus and right fallopian tube were delivered through the vagina. The vaginal opening was closed using V-Loc suture in a running nonlocked manner as is typical. Once closure was complete, suction irrigation was undertaken in order to ensure good hemostasis as well as to clear out any debris from the pelvis. Once this was done, I carefully examined each of the remaining endometriotic implants and unfortunately felt that the risk of trying to excise them was unacceptably high due to the fact that they directly over lie each of her ureters. Therefore, the decision was made to remove all instruments and undock the robot. Methylene blue was administered intravenously and cystoscopy was then performed showing an immediate strong jet of blue stained urine from each ureteral orifice. The bladder was then drained and attention was turned to abdominal closure. All gas was allowed to escape. The ports were removed. The umbilical entry was closed with a UR-6 suture at the fascial layer and all sites were closed with Monocryl and a Dermabond dressing. The patient was then transferred in stable condition to the PACU. I attest to the content of the Intraoperative Record and any orders documented therein. Any exception s are noted below.
[2016-11-10 16:58] LABS: HEMATOCRIT 40.9 % (37-47)
[2016-11-10] MEDS ORDERED: DOCUSATE SODIUM 100 MG CAP PO SCH (21:00)
--- NOTE | 2016-11-24 05:43 | Discharge Summary ---
Discharge Summary Date of Service Nov 24, 2016. Discharge Summary Admission Date: Nov 10, 2016 at 05:45 Discharge Date: Nov 10, 2016 Discharge Disposition: Home Principal Diagnosis: Endometriosis, pelvic pain, menorrhagia Problems/Secondary Diagnoses: (1) Anxiety Status: Chronic (2) Asthma Status: Chronic (3) Bipolar disorder Status: Chronic (4) Endometriosis Status: Chronic (5) Stomach problems Status: Chronic Procedures: Total laparoscopic hysterectomy, bilateral salpingectomy, cystoscopy Medication Reconciliation New Medications: Oxycodone/Acetaminophen 5MG/325MG (Percocet 5MG/325MG) Tab 1 TABLET PO Q4H PRN for Pain, #15 TAB Continued Medications: Escitalopram Oxalate (Lexapro) 10 Mg Tab 1 TAB PO DAILY for 90 Days, #90 TAB 3 Refills Ibuprofen (Motrin) 600 Mg Tab 600 MG PO Q6H PRN for Pain Topiramate (Topamax) 50 Mg Tab 50 MG PO DIRECTED, TAB Discontinued Medications: Norgestimate-Ethinyl Estradiol (Ortho-Cyclen) 1 Tab Tab 1 TAB PO DAILY Hospital Course Total Time Spent: Less than 30 minutes This includes examination of the patient, discharge planning, medication reconciliation, and communication with other providers. Discharge Instructions Please refer to the electronic Patient Visit Report (Discharge Instructions) for additional information.
== END 2016-11-10 18:10 | disposition home or self-care (01) ==
LOC: C.ACU 05:26 → INTOOBSV 05:45 → C.MS4N 05:45 → ENRESERV 09:52
PROVIDERS: ADMIT Obstetrics & Gynecology; ATTEND Obstetrics & Gynecology
DX: N80.3 Endometriosis of pelvic peritoneum (principal); N92.0 Excessive and frequent menstruation with regular cycle; F41.9 Anxiety disorder, unspecified; G40.209 Localization-related (focal) (partial) symptomatic epilepsy and epileptic syndromes with complex partial seizures, not intractable, without status epilepticus; F32.9 Major depressive disorder, single episode, unspecified; Z84.2 Family history of other diseases of the genitourinary system; Z82.69 Family history of other diseases of the musculoskeletal system and connective tissue; Z81.8 Family history of other mental and behavioral disorders; Z83.49 Family history of other endocrine, nutritional and metabolic diseases; Z79.899 Other long term (current) drug therapy; Z72.0 Tobacco use
CPT/HCPCS: 58571; S2900

== ENCOUNTER → 2016-11-27 | Outpatient (CLI) | payer OTHER ==
[~2016-11-27] MED LIST changes: +LXP/10 PO; -NORG0.253 PO; +OXYC-57 PO; +TOPI50TA16 PO
[2016-11-27 09:47] LABS: CHOLESTEROL/HDL RATIO 3.4
== END | disposition home or self-care (01) ==
LOC: C.LAB1850 08:05
PROVIDERS: ATTEND Physician Assistant
DX: Z00.00 Encounter for general adult medical examination without abnormal findings (principal)

== ENCOUNTER → 2016-12-23 | Outpatient (CLI) | payer OTHER ==
[2016-12-23 13:40] LABS: URINE APPEARANCE TURBID (CLEAR); URINE BILIRUBIN NEG (NEG); URINE COLOR YELLOW; URINE EPITHELIAL CELL AUTO >30 /lpf (0-5); URINE NITRITE NEG (NEG); URINE SPECIFIC GRAVITY 1.023 (1.000-1.030); UROBILINOGEN NEG (NEG)
[2016-12-23 13:47] LABS: MANUAL MICROSCOPIC REQUIRED? NO; REVIEW REQ? NO
== END | disposition home or self-care (01) ==
LOC: C.LABSPEC 11:07
PROVIDERS: ATTEND Obstetrics & Gynecology
DX: R10.31 Right lower quadrant pain (principal)

== ENCOUNTER → 2016-12-23 | Outpatient (CLI) | payer OTHER ==
[2016-12-23 14:46] LABS: BASO % 0.4 %; BASO ABS # 0.03 K/uL (0-0.2); COMPLETE YES; EOS % 1.4 %; HEMATOCRIT 39.3 % (37-47); IG% 0.1 %; LYMPH % 33.5 %; LYMPH ABS # 2.38 K/uL (1.2-3.4); MEAN CELL VOLUME 87.3 fL (80-100); MEAN CORPUSCULAR HEMOGLOBIN 27.8 pg (25-34); MEAN CORPUSCULAR HGB CONC 31.8 g/dl (32-36); MEAN PLATELET VOLUME 12.2 fL (7.4-10.4); MONO % 5.4 %; NEUT % 59.2 %; PLATELET COUNT 275 K/uL (130-400)
== END | disposition home or self-care (01) ==
LOC: C.LAB1850 13:17
PROVIDERS: ATTEND Obstetrics & Gynecology
DX: N76.0 Acute vaginitis (principal)

== ENCOUNTER → 2017-06-10 | Outpatient (CLI) | payer OTHER ==
[~2017-06-10] MED LIST changes: -OXYC-57 PO
[2017-06-10 12:09] LABS: BASO % 0.5 %; BASO ABS # 0.03 K/uL (0-0.2); EOS ABS # 0.12 K/uL (0-0.5); HEMATOCRIT 40.7 % (37-47); HEMOGLOBIN 12.9 g/dL (12.0-16.0); IG# 0.01 K/uL (0.00-0.02); LYMPH ABS # 2.37 K/uL (1.2-3.4); MEAN CELL VOLUME 89.3 fL (80-100); MEAN CORPUSCULAR HEMOGLOBIN 28.3 pg (25-34); MEAN CORPUSCULAR HGB CONC 31.7 g/dl (32-36); MEAN PLATELET VOLUME 12.3 fL (7.4-10.4); MONO % 6.1 %; MONO ABS # 0.37 K/uL (0.11-0.59); NEUT % 52.2 %; NEUT ABS # 3.17 K/uL (1.4-6.5); PLATELET COUNT 267 K/uL (130-400); RED CELL DISTRIBUTION WIDTH SD 42.3 fL (36.4-46.3); WHITE BLOOD COUNT 6.07 K/uL (4.8-10.8)
== END | disposition home or self-care (01) ==
LOC: C.LAB1850 10:33
PROVIDERS: ATTEND Physician Assistant
DX: K62.5 Hemorrhage of anus and rectum (principal)

== ENCOUNTER → 2017-06-23 | Day surgery (SDC) | payer OTHER ==
[2017-06-16 08:05] VITALS: Ht 165.1 cm; Wt 101.8 kg
[~2017-06-23] VITALS: Ht 165.1 cm; Wt 101.8 kg
[~2017-06-23] MED LIST changes: +ESCI10TA17 PO; +HYDR2.5C37 TOP; -IBUP600T44 PO; +LIDOCAINE HCL 2% 2 ML VIAL (20MG/ML) ONE; -LXP/10 PO; +MIDAZOLAM HCL 1 MG/ML 2ML VIAL ONE; +PROPOFOL IV EMULSION 10 MG/ML 20 ML VIAL IV ONE; +SODIUM CHLORIDE 0.9% 500ML 500 ML IV ONE; -TOPI50TA16 PO; +TOPI50TA24 PO
[2017-06-23 08:38] VITALS: TEMP 36.8
--- NOTE | 2017-06-23 09:28 | Endo History and Physical ---
History & Physical Date of Service: Jun 23, 2017. Chief Complaint: Rectal bleeding Referring Physician: Tania History of Present Illness Rectal bleeding and Hx of hemorrhoids, Altered bowel habits. Past Surgical History Hx Cardiac Surgery: No Hx Internal Defibrillator: No Hx Pacemaker: No Hx Abdominal Surgery: Yes (LAPAROSCOPY, LEFT SALPINGO-OOPHRECTOMY, APPY, C- SECTION X2) Hx of Implantable Prosthesis: No Hx Post-Op Nausea and Vomiting: No Hx Cancer Surgery: No Hx Thoracic Surgery: No Hx Orthopedic: No Hx Urinary Tract Surgery: No Family History Colon CA, Polyp, IBD Social History Smoking Status: Former Smoker Hx Substance Use: No Hx Alcohol Use: Yes (VERY RARELY) Allergies Coded Allergies: Brompheniramine (Unverified Adverse Reaction, Mild, HARD TO AROUSE, ) Phenylpropanolamine (Unverified Adverse Reaction, Mild, HARD TO AROUSE, ) Current Medications Reported Home Medications Medications Dose Route/Sig Max Daily Dose Days Date Category Anusol-Hc 2.5% (Hydrocortisone 2.5% (Rectal)) 2.5 % Cre 1 Appln TOP BID 7 06/23/17 Reported Lexapro (Escitalopram Oxalate) 10 Mg Tab 10 Mg PO QAM 06/16/17 Reported Topamax (Topiramate) 50 Mg Tab 50 Mg PO BID 06/16/17 Reported Vital Signs Weight (Kilograms): 101.82 Height (Feet): 5 Height (Inches): 5 Date Time Temp Pulse Resp B/P (MAP) Pulse Ox O2 Delivery O2 Flow Rate FiO2 06/23/17 08:38 36.8 82 20 109/77 (88) 98 Room Air Physical Exam General Appearance: no apparent distress Respiratory/Chest: Auscultation: breath sounds normal Cardiovascular: Heart Auscultation: RRR Abdomen: Inspection & Palpation: soft, non-distended Assessment and Plan Stable for colonoscopy and consented.
--- NOTE | 2017-06-23 09:52 | Anesthesiology Progress Note ---
Anesthesia Post Op Note Date & Time Jun 23, 2017 at 09:51 Vital Signs Pain Intensity: 0 Vital Signs Past 12 Hours Date Time Temp Pulse Resp B/P (MAP) Pulse Ox O2 Delivery O2 Flow Rate FiO2 06/23/17 08:38 36.8 82 20 109/77 (88) 98 Room Air Notes Mental Status: alert / awake / arousable, participated in evaluation Pt Amnestic to Procedure: Yes Nausea / Vomiting: adequately controlled Pain: adequately controlled Airway Patency, RR, SpO2: stable & adequate BP & HR: stable & adequate Hydration State: stable & adequate Anesthetic Complications: no major complications apparent
--- NOTE | 2017-06-23 10:19 | GI REPORT ---
Procedure Date: 06/23/2017 9:37 AM Procedure: Colonoscopy Indications: Rectal bleeding Medicines: Monitored Anesthesia Care Complications: No immediate complications. Estimated Blood Loss: Estimated blood loss: none. Procedure: Pre-Anesthesia Assessment: - Prior to the procedure, a History and Physical was performed, and patient medications and allergies were reviewed. The patient is competent. The risks and benefits of the procedure and the sedation options and risks were discussed with the patient. All questions were answered and informed consent was obtained. Patient identification and proposed procedure were verified by the physician and the nurse in the procedure room. Mental Status Examination: alert and oriented. Airway Examination: normal oropharyngeal airway and neck mobility. Respiratory Examination: clear to auscultation. CV Examination: normal. ASA Grade Assessment: III - A patient with severe systemic disease. After reviewing the risks and benefits, the patient was deemed in satisfactory condition to undergo the procedure. The anesthesia plan was to use monitored anesthesia care (MAC). Immediately prior to administration of medications, the patient was re-assessed for adequacy to receive sedatives. The heart rate, respiratory rate, oxygen saturations, blood pressure, adequacy of pulmonary ventilation, and response to care were monitored throughout the procedure. The physical status of the patient was re-assessed after the procedure. After I obtained informed consent, the scope was passed under direct vision. Throughout the procedure, the patient's blood pressure, pulse, and oxygen saturations were monitored continuously. The scope was introduced through the anus and advanced to the terminal ileum. The colonoscopy was performed without difficulty. The patient tolerated the procedure well. The quality of the bowel preparation was good. The terminal ileum, ileocecal valve, appendiceal orifice, and rectum were photographed. Scope withdrawal time was 12 minutes. Findings: The perianal and digital rectal examinations were normal. The terminal ileum appeared normal. A 10 mm polyp was found in the descending colon. The polyp was sessile. The polyp was removed with a hot snare. Resection and retrieval were complete. Verification of patient identification for the specimen was done by the physician and nurse using the patient's name and date. A 6 mm polyp was found in the sigmoid colon. The polyp was sessile. The polyp was removed with a cold snare. Resection and retrieval were complete. Non-bleeding internal hemorrhoids were found during retroflexion. The hemorrhoids were small. Impression: - The examined portion of the ileum was normal. - One 10 mm polyp in the descending colon, removed with a hot snare. Resected and retrieved. - One 6 mm polyp in the sigmoid colon, removed with a cold snare. Resected and retrieved. - Non-bleeding internal hemorrhoids. Recommendation: - Discharge patient to home. - Await pathology results. - Repeat colonoscopy in 3 years for surveillance. - Return to referring physician. Raya Winston MD 06/23/2017 10:18:58 AM This report has been signed electronically. Note Initiated On: 06/23/2017 9:37 AM I attest to the content of the Intraoperative Record and orders documented therein, exceptions below
[2017-06-23 10:37] VITALS: BP 144/85; PULSE 68; O2SAT 99
--- NOTE | 2017-06-23 10:51 | Discharge Instructions ---
Endoscopy Patient Instructions Date / Procedure(s) Performed Jun 23, 2017. Colonoscopy Allergy Information Coded Allergies: Brompheniramine (Verified Adverse Reaction, Mild, HARD TO AROUSE, 06/23/17) Phenylpropanolamine (Verified Adverse Reaction, Mild, HARD TO AROUSE, ) Discharge Date / Findings Jun 23, 2017. Polyps and hemorrhoids Provider Instructions Activity Restrictions - No exercising or heavy lifting for 24 hours. - Do not drink alcohol the day of the procedure. - Do not drive a car or operate machinery until the day after the procedure. - Do not make any important decisions or sign important papers in 24 hours after the procedure. Following Day: - Return to full activity which may include returning to work/school. Diet Start your diet with liquids and light foods (jello, soup, juice, toast). Then eat your usual diet if not nauseated. Treatment For Common After Affects For mild abdominal pain, bloating, or excessive gas: - Rest - Eat lightly - Lie on right side Follow-Up Information Follow-up with Tania as scheduled Anesthesia Information What You Should Know You have had a procedure that required some medicine to reduce anxiety and discomfort. This treatment is called moderate sedation. After receiving the treatment, you may be sleepy, but you will be able to breathe on your own. The effects of the treatment may last for several hours. Follow these instructions along with Activity/Diet recommendations noted above: * Do NOT do anything where dizziness or clumsiness would be dangerous. * Rest quietly at home today, then you can be up and about tomorrow. * Have a responsible person stay with you the rest of today. * You may have had an I.V. today. If so, you may take the dressing off later today. Recommendations Call your doctor if: * Trouble breathing * Continuous vomiting for more than 24 hours * Temperature above 101 degrees * Severe abdominal pain or bloating * Pain not relieved by pain medicine ordered * There is increased drainage or redness from any incision * A large amount of rectal bleeding greater than 2-3 tablespoons. (If you had a polyp/s removed or have hemorrhoids, a small amount of blood - from the rectum is to be expected.) * You have any unanswered questions or concerns. IN THE EVENT OF A SERIOUS EMERGENCY, GO TO THE NEAREST EMERGENCY ROOM Your discharge instructions were prepared by provider Raya Winston. Patient Instructions Signature Page Sandra Carrero Patient (or Guardian) Signature/Date: I have read and understand the instructions given to me by my caregivers. Caregiver/RN/Doctor Signature/Date: The above-named patient and/or guardian has received patient instructions on this date. + Original Patient Signature Page (only) stays with chart. Please make copy for patient.
== END | disposition home or self-care (01) ==
LOC: C.GI 08:13
PROVIDERS: ATTEND Student in an Organized Health Care Education/Training Program
DX: K62.5 Hemorrhage of anus and rectum (principal); R19.4 Change in bowel habit; D12.4 Benign neoplasm of descending colon; D12.5 Benign neoplasm of sigmoid colon; K64.8 Other hemorrhoids; F31.9 Bipolar disorder, unspecified; Z87.891 Personal history of nicotine dependence; Z90.89 Acquired absence of other organs; Z90.721 Acquired absence of ovaries, unilateral; F41.8 Other specified anxiety disorders; J45.909 Unspecified asthma, uncomplicated; Z79.899 Other long term (current) drug therapy; Z90.710 Acquired absence of both cervix and uterus; Z80.0 Family history of malignant neoplasm of digestive organs